=== PATIENT | male | born 1940 | race Caucasian/White ===

== ENCOUNTER 2017-03-14 10:22 | Outpatient (CLI) | payer MEDICARE ==
[2017-03-14 12:06] LABS: Anion Gap 15 mmol/L (10-20); BUN (Urea Nitrogen) 39 mg/dL (8.4-25.7); Calc. Creatinine Clearance 0 mL/min (70-130); Calcium 9.4 mg/dL (7.8-10.44); Carbon Dioxide 25 mmol/L (23-31); Cardiac Risk 3.4 (Less than 4.5); Chloride 109 mmol/L (98-107); Cholesterol 112 mg/dl (< 200 Desired); Estimated GFR-MDRD 31; Glucose 93 mg/dL (83-110); HDL Cholesterol 33 mg/dL (>60 Neg Risk); LDL Cholesterol, Calculated 54 mg/dL; Potassium 4.5 mmol/L (3.5-5.1); Sodium 144 mmol/L (136-145); Triglycerides 123 mg/dL (Less than 150)
== END 2017-03-14 10:23 | disposition home or self-care (01) ==
LOC: BURLAB 10:22
PROVIDERS: ATTEND Internal Medicine Cardiovascular Disease
DX: E78.5 Hyperlipidemia, unspecified (principal); N18.3 Chronic kidney disease, stage 3 (moderate)
CPT/HCPCS: 36415; 80048; 80061; 83835

== ENCOUNTER 2017-04-05 08:24 | Outpatient (CLI) | payer MEDICARE ==
[2017-04-05 09:38] LABS: Anion Gap 13 mmol/L (10-20); BUN (Urea Nitrogen) 39 mg/dL (8.4-25.7); Calc. Creatinine Clearance 0 mL/min (70-130); Calcium 9.7 mg/dL (7.8-10.44); Carbon Dioxide 29 mmol/L (23-31); Chloride 109 mmol/L (98-107); Estimated GFR-MDRD 34; Glucose 106 mg/dL (83-110); Potassium 4.7 mmol/L (3.5-5.1); Sodium 146 mmol/L (136-145)
== END 2017-04-05 08:25 | disposition home or self-care (01) ==
LOC: BURLAB 08:24
PROVIDERS: ATTEND Internal Medicine Nephrology
DX: N18.3 Chronic kidney disease, stage 3 (moderate) (principal)
CPT/HCPCS: 36415; 80048

== ENCOUNTER 2018-02-08 08:24 | Emergency (ER) | payer MEDICARE ==
[2018-02-08] MEDS ORDERED: methylPREDNISolone Sod Succ/PF 125 MG/2 ML VIAL ONE (08:41)
== END 2018-02-08 09:11 | disposition home or self-care (01) ==
LOC: BURERS 08:24
DX: M10.9 Gout, unspecified (principal); E78.5 Hyperlipidemia, unspecified; I10 Essential (primary) hypertension; Z87.891 Personal history of nicotine dependence
CPT/HCPCS: 96372; J2930

== ENCOUNTER 2018-03-04 14:22 | Outpatient (CLI) | payer MEDICARE ==
--- NOTE | 2018-03-04 15:04 | RAD ---
RIGHT RIBS FOUR VIEWS: History: Right rib injury. FINDINGS/IMPRESSION: Mildly displaced fracture involves the lateral aspect of the right 9th rib. No evidence of pneumothor ax. POS: [facility]
== END 2018-03-04 14:23 | disposition home or self-care (01) ==
LOC: BURRAD 14:22
PROVIDERS: ATTEND Family Medicine
DX: R07.81 Pleurodynia (principal); S22.31XA Fracture of one rib, right side, initial encounter for closed fracture

== ENCOUNTER 2018-03-27 15:32 | Inpatient (IN) | payer MEDICARE ==
[2018-03-28] MEDS: Amlodipine 10 MG TAB PO SCH (08:47)
[2018-03-28] MEDS: Carvedilol 3.125 MG TAB PO SCH ×2 (08:49→17:43)
[2018-03-28] MEDS: Colchicine 0.6 MG TAB PO SCH (08:50)
[2018-03-28] MEDS: Furosemide 20 MG TAB PO SCH (08:50)
[2018-03-28] MEDS: Aspirin 81 mg Enteric Coated Tablet PO SCH (08:50)
[2018-03-28] MEDS: Ezetimibe 10 MG TAB PO SCH (08:50)
[2018-03-28] MEDS: Fish Oil 1,000 MG CAP PO SCH (08:50)
[2018-03-28] MEDS: Gabapentin 300 MG CAP PO SCH ×2 (08:50→21:22)
[2018-03-28] MEDS: Vit A,C & E/Lutein/Minerals Tablet PO SCH ×2 (08:51→21:22)
[2018-03-28] MEDS ORDERED: VIT C PO SCH (09:00)
[2018-03-28] MEDS ORDERED: VIT E PO SCH (09:00)
[2018-03-28] MEDS ORDERED: OMEGA PO SCH (09:00)
[2018-03-28] MEDS ORDERED: LUTEIN PO SCH (09:00)
[2018-03-28] MEDS: Tamsulosin HCl 0.4 MG CAP PO SCH (21:22)
--- NOTE | 2018-03-29 08:33 | HP ---
PRIMARY CARE PHYSICIAN: Hernando Brown D.O. ATTENDING PHYSICIAN: Nora Lao M.D. CHIEF COMPLAINT: Extended stay at [facility] for skilled rehabilitation for deconditioning with physical and occupational therapy. HISTORY OF PRESENT ILLNESS: Mr. Marie is a 78-year-old male with hypertension, coronary artery disease, history of stroke, hyperlipidemia, and gout, was initially admitted to [facility] on 03/18/2018 for change of mental status and possible gout flare. On admission, he was treated for possible sepsis as the cause of his encephalopathy. He was given broad-spectrum IV antibiotics; however, cultures were all negative. His brain CT scan showed chronic small vessel ischemic changes and cerebral volume loss with focal areas of encephalomalacia in the occipital lobe, likely secondary to remote areas of infarctions. Also noted, remote lacunar infarction of the right basal ganglia with remote infarctions in each cerebellar hemisphere. He had intermittent confusion with somnolence while in the hospital; hence, Dr. Moulton was consulted and suggested to proceed with brain MRI; however, due to agitations and being combative, it was not carried out. He noted that likely cause of the confusion was due to a nonreversible etiology. Review of his records demonstrated that patient was admitted 3 weeks prior secondary to systemic inflammatory response syndrome with gout flare. According to his , he did not recover back to his baseline mental status after that discharge. Prior to that admission, patient was still driving to the grocery store and with no cognitive problems . Before his transfer, the patient's mental status improved some, but not back to his baseline. He refused physical therapy on 2 occasions and partially participated with therapy prior to his transfer; hence, this recommendation for inpatient rehab to address deconditioning. The patient' s family are hopeful for patient recovering, and to go back home. Upon arrival , the patient became agitated after learning that will be going home. During my exam, he was pleasant, but appears disoriented. PAST MEDICAL HISTORY: 1. Hypertension. 2. Coronary artery disease. 3. History of stroke. 4. Hyperlipidemia. 5. Diabetes, diet controlled. 6. Gout. 7. Recent diagnosis of acute kidney disease. 8. Macular degeneration. 9. Benign prostatic hypertrophy. 10. History of elevated liver function tests. PAST SURGICAL HISTORY: Coronary artery bypass. History of skin cancer excision. ALLERGIES: STATINS. FAMILY HISTORY: Significant for chronic kidney disease and macular degeneration. SOCIAL HISTORY: Patient is . Former smoker, quit about 20 years ago. History of alcohol use; used to drink 3 hard liquors every day for the past 50 years. Son lives 2 hours away MEDICATIONS: 1. Amlodipine 10 mg daily. 2. Aspirin 81 mg daily. 3. Coreg 3.125 mg b.i.d. 4. Colchicine 0.6 mg daily. 5. Zetia 10 mg daily. 6. Fish oil 1000 mg daily. 7. Lasix 20 mg daily. 8. Gabapentin 600 mg b.i.d. 9. Imdur 60 mg daily. 10. Multivitamins 1 tablet b.i.d. 11. Flomax 0.4 mg p.o. daily. REVIEW OF SYSTEMS: General: Negative for fever or chills. Negative for decreased appetite. HEENT: Negative for headaches. Positive for blurred vision. Negative for sore throat. Cardiovascular: Negative for chest pain. Negative for shortness of breath. Respiratory: Negative for wheezing. Negative for cough. Gastrointestinal: Negative for nausea, vomiting, or diarrhea. Neurologic: Positive for confusion. Positive for memory loss. Musculoskeletal: Positive for bilateral knee pain. Positive for weakness. Psychiatric: Negative for homicidal or suicidal ideation. PHYSICAL EXAMINATION: VITAL SIGNS: Blood pressure of 158/75, temperature of 98.7, pulse of 73, respiratory rate of 18, 02 sat 95% on room air. GENERAL: The patient is alert, oriented to himself, not in respiratory distress. HEENT: Normocephalic and atraumatic. Pupils equally reactive to light. NECK: Supple. Negative for lymphadenopathy. CHEST AND LUNGS: Symmetrical expansion. Clear to auscultation. HEART: Regular rate and rhythm. Negative for murmur, rubs, or gallops. ABDOMEN: Flat, soft, nontender, normoactive bowel sounds. Negative for CVA tenderness. EXTREMITIES: Symmetrical range of motion. Negative for tenderness. Negative for swelling. NEUROLOGIC: Patient is awake, cooperative, oriented to himself. He follows commands appropriately. Speech is fluent. Gait: Not assessed. LABORATORY DATA AND IMAGING: Reviewed. ASSESSMENT: 1. Physical deconditioning. 2. Ongoing altered mental sensorium. 3. Hypertension. 4. Diabetes mellitus, diet controlled. 5. Coronary artery disease. 6. Hyperlipidemia. 7. Gait instability. 8. History of strokes. 9. Recent gout flare. PLAN: 1. PT and OT to treat and evaluate. Goals to improve mobility, gait, endurance , strength, and transfer ability. 2. Reconcile present medication and adjust depending on clinical course. 3. Avoid benzodiazepines or any medication that can cause sedation. 4. Refer to case management for discharge planning and advise regarding potential needs for DME. 5. Anticipate discharge to home in 1-2 weeks and may require home health. CODE STATUS: FULL CODE. MTDD
[2018-03-29] MEDS ORDERED: Naproxen 500 MG TAB PO PRN (09:01)
[2018-03-29] MEDS: Amlodipine 10 MG TAB PO SCH (09:32)
[2018-03-29] MEDS: Carvedilol 3.125 MG TAB PO SCH ×2 (09:32→17:31)
[2018-03-29] MEDS: Furosemide 20 MG TAB PO SCH (09:33)
[2018-03-29] MEDS: Fish Oil 1,000 MG CAP PO SCH (09:33)
[2018-03-29] MEDS: Colchicine 0.6 MG TAB PO SCH (09:33)
[2018-03-29] MEDS: Aspirin 81 mg Enteric Coated Tablet PO SCH (09:33)
[2018-03-29] MEDS: Ezetimibe 10 MG TAB PO SCH (09:35)
[2018-03-29] MEDS: Gabapentin 300 MG CAP PO SCH ×3 (09:35→22:00)
[2018-03-29] MEDS: Vit A,C & E/Lutein/Minerals Tablet PO SCH ×2 (09:35→22:00)
[2018-03-29] MEDS: Acetaminophen 500 MG TAB PO PRN ×3 (10:00→22:17)
[2018-03-29] MEDS: Tamsulosin HCl 0.4 MG CAP PO SCH (22:00)
[2018-03-29] MEDS: Nystatin Cream 15 GM TUBE TOP SCH (22:06)
[2018-03-30] MEDS: Amlodipine 10 MG TAB PO SCH (08:24)
[2018-03-30] MEDS: Carvedilol 3.125 MG TAB PO SCH ×2 (08:24→18:07)
[2018-03-30] MEDS: Fish Oil 1,000 MG CAP PO SCH (08:25)
[2018-03-30] MEDS: Furosemide 20 MG TAB PO SCH (08:25)
[2018-03-30] MEDS: Aspirin 81 mg Enteric Coated Tablet PO SCH (08:25)
[2018-03-30] MEDS: Vit A,C & E/Lutein/Minerals Tablet PO SCH ×2 (08:25→20:26)
[2018-03-30] MEDS: Ezetimibe 10 MG TAB PO SCH (08:25)
[2018-03-30] MEDS: Colchicine 0.6 MG TAB PO SCH (08:25)
[2018-03-30] MEDS: Gabapentin 300 MG CAP PO SCH ×2 (08:25→20:27)
[2018-03-30] MEDS: Nystatin Cream 15 GM TUBE TOP SCH ×2 (08:26→20:27)
[2018-03-30] MEDS: Tamsulosin HCl 0.4 MG CAP PO SCH (20:25)
[2018-03-30] MEDS: Acetaminophen 500 MG TAB PO PRN (20:27)
[2018-03-31] MEDS: Colchicine 0.6 MG TAB PO SCH (08:12)
[2018-03-31] MEDS: Amlodipine 10 MG TAB PO SCH (08:12)
[2018-03-31] MEDS: Aspirin 81 mg Enteric Coated Tablet PO SCH (08:12)
[2018-03-31] MEDS: Ezetimibe 10 MG TAB PO SCH (08:12)
[2018-03-31] MEDS: Carvedilol 3.125 MG TAB PO SCH ×2 (08:12→17:10)
[2018-03-31] MEDS: Vit A,C & E/Lutein/Minerals Tablet PO SCH ×2 (08:13→21:05)
[2018-03-31] MEDS: Fish Oil 1,000 MG CAP PO SCH (08:13)
[2018-03-31] MEDS: Furosemide 20 MG TAB PO SCH (08:13)
[2018-03-31] MEDS: Nystatin Cream 15 GM TUBE TOP SCH ×2 (08:13→21:06)
[2018-03-31] MEDS: Gabapentin 300 MG CAP PO SCH ×2 (08:13→21:05)
[2018-03-31] MEDS: Acetaminophen 500 MG TAB PO PRN ×3 (08:48→23:09)
[2018-03-31] MEDS: Tamsulosin HCl 0.4 MG CAP PO SCH (21:05)
[2018-04-01] MEDS: Ezetimibe 10 MG TAB PO SCH (08:52)
[2018-04-01] MEDS: Amlodipine 10 MG TAB PO SCH (08:52)
[2018-04-01] MEDS: Fish Oil 1,000 MG CAP PO SCH (08:52)
[2018-04-01] MEDS: Furosemide 20 MG TAB PO SCH (08:52)
[2018-04-01] MEDS: Colchicine 0.6 MG TAB PO SCH (08:52)
[2018-04-01] MEDS: Gabapentin 300 MG CAP PO SCH ×2 (08:52→21:03)
[2018-04-01] MEDS: Aspirin 81 mg Enteric Coated Tablet PO SCH (08:52)
[2018-04-01] MEDS: Carvedilol 3.125 MG TAB PO SCH ×2 (08:53→17:22)
[2018-04-01] MEDS: Acetaminophen 500 MG TAB PO PRN (08:53)
[2018-04-01] MEDS: Vit A,C & E/Lutein/Minerals Tablet PO SCH ×2 (08:53→21:03)
[2018-04-01] MEDS: Nystatin Cream 15 GM TUBE TOP SCH ×2 (08:53→21:03)
[2018-04-01] MEDS ORDERED: traMADol HCl 50 MG TAB PO SCH (21:00)
[2018-04-01] MEDS: Tamsulosin HCl 0.4 MG CAP PO SCH (21:03)
[2018-04-01] MEDS: traMADol HCl 50 MG TAB PO SCH (21:45)
[2018-04-02] MEDS: Colchicine 0.6 MG TAB PO SCH (09:10)
[2018-04-02] MEDS: Carvedilol 3.125 MG TAB PO SCH ×2 (09:11→17:44)
[2018-04-02] MEDS: Gabapentin 300 MG CAP PO SCH ×2 (09:11→20:56)
[2018-04-02] MEDS: Amlodipine 10 MG TAB PO SCH (09:11)
[2018-04-02] MEDS: Ezetimibe 10 MG TAB PO SCH (09:11)
[2018-04-02] MEDS: Aspirin 81 mg Enteric Coated Tablet PO SCH (09:11)
[2018-04-02] MEDS: Furosemide 20 MG TAB PO SCH (09:11)
[2018-04-02] MEDS: Fish Oil 1,000 MG CAP PO SCH (09:11)
[2018-04-02] MEDS: traMADol HCl 50 MG TAB PO SCH (09:13)
[2018-04-02] MEDS: Acetaminophen 500 MG TAB PO PRN (09:13)
[2018-04-02] MEDS: Vit A,C & E/Lutein/Minerals Tablet PO SCH ×2 (09:13→20:56)
[2018-04-02] MEDS: Nystatin Cream 15 GM TUBE TOP SCH ×2 (09:14→20:57)
[2018-04-02] MEDS: Acetaminophen 325 MG TAB PO SCH ×2 (14:59→21:02)
[2018-04-02] MEDS: VOLTAREN FS SCH (17:44)
[2018-04-02] MEDS: Tamsulosin HCl 0.4 MG CAP PO SCH (20:56)
[2018-04-03] MEDS: VOLTAREN FS SCH ×4 (00:22→17:14)
[2018-04-03] MEDS: Acetaminophen 325 MG TAB PO SCH ×4 (06:03→21:27)
[2018-04-03] MEDS: Furosemide 20 MG TAB PO SCH (08:47)
[2018-04-03] MEDS: Ezetimibe 10 MG TAB PO SCH (08:48)
[2018-04-03] MEDS: Colchicine 0.6 MG TAB PO SCH (08:49)
[2018-04-03] MEDS: Fish Oil 1,000 MG CAP PO SCH (08:49)
[2018-04-03] MEDS: Aspirin 81 mg Enteric Coated Tablet PO SCH (08:49)
[2018-04-03] MEDS: Carvedilol 3.125 MG TAB PO SCH ×2 (08:50→17:11)
[2018-04-03] MEDS: Gabapentin 300 MG CAP PO SCH ×2 (08:50→21:25)
[2018-04-03] MEDS: Amlodipine 10 MG TAB PO SCH (08:59)
[2018-04-03] MEDS: Vit A,C & E/Lutein/Minerals Tablet PO SCH ×2 (09:31→21:25)
[2018-04-03] MEDS: Nystatin Cream 15 GM TUBE TOP SCH ×2 (09:33→21:27)
[2018-04-03] MEDS: Tamsulosin HCl 0.4 MG CAP PO SCH (21:25)
[2018-04-04] MEDS: VOLTAREN FS SCH ×5 (00:16→23:48)
[2018-04-04] MEDS: Acetaminophen 325 MG TAB PO SCH ×4 (02:52→20:20)
[2018-04-04] MEDS: Furosemide 20 MG TAB PO SCH (09:20)
[2018-04-04] MEDS: Aspirin 81 mg Enteric Coated Tablet PO SCH (09:20)
[2018-04-04] MEDS: Ezetimibe 10 MG TAB PO SCH (09:21)
[2018-04-04] MEDS: Carvedilol 3.125 MG TAB PO SCH ×2 (09:21→17:48)
[2018-04-04] MEDS: Gabapentin 300 MG CAP PO SCH ×2 (09:22→20:20)
[2018-04-04] MEDS: Fish Oil 1,000 MG CAP PO SCH (09:25)
[2018-04-04] MEDS: Amlodipine 10 MG TAB PO SCH (09:31)
[2018-04-04] MEDS: Nystatin Cream 15 GM TUBE TOP SCH ×2 (09:32→20:22)
[2018-04-04] MEDS: Vit A,C & E/Lutein/Minerals Tablet PO SCH ×2 (09:34→20:21)
[2018-04-04] MEDS: Colchicine 0.6 MG TAB PO SCH (09:35)
[2018-04-04] MEDS: Tamsulosin HCl 0.4 MG CAP PO SCH (20:20)
[2018-04-05] MEDS: Acetaminophen 325 MG TAB PO SCH ×4 (02:42→21:13)
[2018-04-05] MEDS: VOLTAREN FS SCH ×2 (05:28→12:07)
[2018-04-05] MEDS: Vit A,C & E/Lutein/Minerals Tablet PO SCH ×2 (08:59→21:14)
[2018-04-05] MEDS: Aspirin 81 mg Enteric Coated Tablet PO SCH (09:00)
[2018-04-05] MEDS: Gabapentin 300 MG CAP PO SCH ×2 (09:00→21:14)
[2018-04-05] MEDS: Ezetimibe 10 MG TAB PO SCH (09:00)
[2018-04-05] MEDS: Fish Oil 1,000 MG CAP PO SCH (09:01)
[2018-04-05] MEDS: Carvedilol 3.125 MG TAB PO SCH ×2 (09:01→16:38)
[2018-04-05] MEDS: Nystatin Cream 15 GM TUBE TOP SCH ×2 (09:02→21:14)
[2018-04-05] MEDS: Furosemide 20 MG TAB PO SCH (09:02)
[2018-04-05] MEDS: Amlodipine 10 MG TAB PO SCH (09:02)
[2018-04-05] MEDS: Colchicine 0.6 MG TAB PO SCH (09:03)
--- NOTE | 2018-04-05 17:13 | PRG ---
DATE OF SERVICE: 04/05/2018 DATE OF ADMISSION: 03/27/2018 PRIMARY CARE PHYSICIAN: Dr. Hernando Brown ATTENDING: Nora Lao M.D. SUBJECTIVE: He had a low blood pressure after tramadol last Sunday. His vital signs remained stabl e after stopping the tramadol. He denies any complaints. His mental status is improving. He is com plaining of constant pain on left knee limiting him to participate with physical therapy. Today, he walked about 316 feet, not requiring any rest breaks, using his rolling walker with standby assist. Patient is getting better with management of lower body strength, but still need a minimal assist to moderate assist due to inconsistency of performance. According to physical therapy notes, he has gonzalez ited motivation at times and will verbalize wanting to go home and not willing to push himself. PHYSICAL EXAMINATION: VITAL SIGNS: Blood pressure 134/68, temperature of 98.2, pulse of 71, respiratory rate of 18, 02 sat 93% on room air. GENERAL: The patient is alert, oriented, not in respiratory distress. HEENT: Normocephalic, atraumatic. Pupils are reactive to light. NECK: Supple. Negative for lymphadenopathy. CHEST AND LUNGS: Symmetrical expansion. Clear to auscultation. HEART: Regular rate and rhythm. Negative for murmur, rubs or gallops. ABDOMEN: Flat, soft, nontender. EXTREMITIES: Symmetrical range of motion. Positive for left anterior knee tenderness, decreased ran ge of motion. Right knee essentially normal. NEUROLOGIC: Patient is cooperative, oriented to himself and place. He follows commands appropriatel y. ASSESSMENT: 1. Physical deconditioning. 2. Altered mental status, improving. 3. Hypertension. 4. Diabetes mellitus, diet controlled. 5. Coronary artery disease. 6. Hyperlipidemia. 7. Gait instability. 8. History of strokes. 9. Recent gout flare. PLAN: Continue physical and occupational therapy. We will order a knee brace for support. Likely d ischarge to home next week with home health for physical therapy.
[2018-04-05] MEDS: DICLOFENAC 1% TOPICAL GEL TOP SCH (17:30)
[2018-04-05] MEDS: Tamsulosin HCl 0.4 MG CAP PO SCH (21:13)
[2018-04-06] MEDS: DICLOFENAC 1% TOPICAL GEL TOP SCH ×4 (00:15→17:31)
[2018-04-06] MEDS: Acetaminophen 325 MG TAB PO SCH ×4 (03:00→20:32)
[2018-04-06] MEDS: Ezetimibe 10 MG TAB PO SCH (09:45)
[2018-04-06] MEDS: Gabapentin 300 MG CAP PO SCH ×2 (09:46→20:32)
[2018-04-06] MEDS: Furosemide 20 MG TAB PO SCH (09:46)
[2018-04-06] MEDS: Amlodipine 10 MG TAB PO SCH (09:46)
[2018-04-06] MEDS: Aspirin 81 mg Enteric Coated Tablet PO SCH (09:46)
[2018-04-06] MEDS: Vit A,C & E/Lutein/Minerals Tablet PO SCH ×2 (09:47→20:32)
[2018-04-06] MEDS: Carvedilol 3.125 MG TAB PO SCH ×2 (09:47→17:30)
[2018-04-06] MEDS: Nystatin Cream 15 GM TUBE TOP SCH ×2 (09:47→20:32)
[2018-04-06] MEDS: Colchicine 0.6 MG TAB PO SCH (09:47)
[2018-04-06] MEDS: Fish Oil 1,000 MG CAP PO SCH (09:47)
[2018-04-06] MEDS: Tamsulosin HCl 0.4 MG CAP PO SCH (20:32)
[2018-04-07] MEDS: DICLOFENAC 1% TOPICAL GEL TOP SCH ×4 (00:10→21:09)
[2018-04-07] MEDS: Acetaminophen 325 MG TAB PO SCH ×4 (02:03→17:27)
[2018-04-07] MEDS: Gabapentin 300 MG CAP PO SCH ×2 (09:49→21:04)
[2018-04-07] MEDS: Carvedilol 3.125 MG TAB PO SCH ×2 (09:49→17:27)
[2018-04-07] MEDS: Aspirin 81 mg Enteric Coated Tablet PO SCH (09:49)
[2018-04-07] MEDS: Amlodipine 10 MG TAB PO SCH (09:50)
[2018-04-07] MEDS: Ezetimibe 10 MG TAB PO SCH (09:51)
[2018-04-07] MEDS: Furosemide 20 MG TAB PO SCH (09:51)
[2018-04-07] MEDS: Fish Oil 1,000 MG CAP PO SCH (09:51)
[2018-04-07] MEDS: Colchicine 0.6 MG TAB PO SCH (09:52)
[2018-04-07] MEDS: Vit A,C & E/Lutein/Minerals Tablet PO SCH ×2 (09:52→21:07)
[2018-04-07] MEDS: Nystatin Cream 15 GM TUBE TOP SCH ×2 (09:52→21:05)
[2018-04-07] MEDS: Tamsulosin HCl 0.4 MG CAP PO SCH (21:05)
[2018-04-08] MEDS: DICLOFENAC 1% TOPICAL GEL TOP SCH ×4 (00:01→17:55)
[2018-04-08] MEDS: Acetaminophen 325 MG TAB PO SCH ×4 (00:01→17:55)
[2018-04-08] MEDS: Amlodipine 10 MG TAB PO SCH (08:36)
[2018-04-08] MEDS: Aspirin 81 mg Enteric Coated Tablet PO SCH (08:36)
[2018-04-08] MEDS: Gabapentin 300 MG CAP PO SCH ×2 (08:37→20:36)
[2018-04-08] MEDS: Furosemide 20 MG TAB PO SCH (08:37)
[2018-04-08] MEDS: Ezetimibe 10 MG TAB PO SCH (08:38)
[2018-04-08] MEDS: Fish Oil 1,000 MG CAP PO SCH (08:38)
[2018-04-08] MEDS: Carvedilol 3.125 MG TAB PO SCH ×2 (08:38→17:55)
[2018-04-08] MEDS: Vit A,C & E/Lutein/Minerals Tablet PO SCH ×2 (08:39→20:36)
[2018-04-08] MEDS: Nystatin Cream 15 GM TUBE TOP SCH ×2 (08:40→20:36)
[2018-04-08] MEDS: Colchicine 0.6 MG TAB PO SCH (08:42)
[2018-04-08] MEDS ORDERED: Docusate 100 MG CAP PO PRN (11:27)
[2018-04-08] MEDS: Tamsulosin HCl 0.4 MG CAP PO SCH (20:36)
[2018-04-09] MEDS: DICLOFENAC 1% TOPICAL GEL TOP SCH ×2 (00:01→05:44)
[2018-04-09] MEDS: Acetaminophen 325 MG TAB PO SCH ×2 (05:44)
[2018-04-09 06:35] VITALS: BP 135/73
[2018-04-09] MEDS: Vit A,C & E/Lutein/Minerals Tablet PO SCH (07:58)
[2018-04-09] MEDS: Ezetimibe 10 MG TAB PO SCH (07:59)
[2018-04-09] MEDS: Gabapentin 300 MG CAP PO SCH (07:59)
[2018-04-09] MEDS: Fish Oil 1,000 MG CAP PO SCH (08:00)
[2018-04-09] MEDS: Aspirin 81 mg Enteric Coated Tablet PO SCH (08:00)
[2018-04-09] MEDS: Amlodipine 10 MG TAB PO SCH (08:00)
[2018-04-09] MEDS: Furosemide 20 MG TAB PO SCH (08:01)
[2018-04-09] MEDS: Colchicine 0.6 MG TAB PO SCH (08:02)
[2018-04-09] MEDS: Carvedilol 3.125 MG TAB PO SCH (08:02)
[2018-04-09 08:53] VITALS: TEMP 97.7
[2018-04-09 11:05] VITALS: BMI 23.4
== END 2018-04-09 11:38 | disposition home or self-care (01) | DRG 948 ==
LOC: BURMED 17:25
PROVIDERS: ADMIT Family Medicine; ATTEND Family Medicine
DX: R53.1 Weakness (principal); I10 Essential (primary) hypertension; I25.10 Atherosclerotic heart disease of native coronary artery without angina pectoris; Z86.73 Personal history of transient ischemic attack (TIA), and cerebral infarction without residual deficits; E78.5 Hyperlipidemia, unspecified; M10.9 Gout, unspecified; E11.9 Type 2 diabetes mellitus without complications; Z95.1 Presence of aortocoronary bypass graft; Z85.828 Personal history of other malignant neoplasm of skin; Z87.891 Personal history of nicotine dependence; R26.89 Other abnormalities of gait and mobility
CPT/HCPCS: G8978-GP-CM; G8979-GP-CJ; G8987-GO-CL; G8988-GO-CI; G9165-GN-CK; G9166-GN-CI

== ENCOUNTER 2018-08-19 16:13 | Inpatient (IN) | payer MEDICARE ==
[2018-08-19] MEDS ORDERED: Senokot S 8.6-50 MG TAB PO PRN (20:06)
[2018-08-19] MEDS ORDERED: Ondansetron ODT 4 MG TAB SL PRN (20:06)
[2018-08-19] MEDS: Colchicine 0.6 MG TAB PO SCH (21:31)
[2018-08-19] MEDS: Gabapentin 300 MG CAP PO SCH (21:31)
[2018-08-19] MEDS: Tamsulosin HCl 0.4 MG CAP PO SCH (21:31)
[2018-08-19] MEDS: Vit A,C & E/Lutein/Minerals Tablet PO SCH (21:32)
[2018-08-19] MEDS: Zolpidem Tartrate 5 MG TAB PO SCH (21:32)
[2018-08-19] MEDS: Heparin 5,000 UNITS/ML VIAL SC SCH (21:32)
[2018-08-20] MEDS: Gabapentin 300 MG CAP PO SCH ×2 (09:03→21:04)
[2018-08-20] MEDS: Vit A,C & E/Lutein/Minerals Tablet PO SCH ×2 (09:04→21:04)
[2018-08-20] MEDS: Carvedilol 3.125 MG TAB PO SCH ×2 (09:04→16:55)
[2018-08-20] MEDS: Ezetimibe 10 MG TAB PO SCH (09:04)
[2018-08-20] MEDS: Colchicine 0.6 MG TAB PO SCH ×2 (09:04→21:05)
[2018-08-20] MEDS: Baclofen 10 MG TAB PO SCH (09:05)
[2018-08-20] MEDS: Amlodipine 10 MG TAB PO SCH (09:05)
[2018-08-20] MEDS: Fish Oil 1,000 MG CAP PO SCH (09:05)
[2018-08-20] MEDS: Aspirin 81 mg Enteric Coated Tablet PO SCH (09:05)
[2018-08-20] MEDS: traMADol HCl 50 MG TAB PO PRN ×2 (09:06→18:14)
[2018-08-20] MEDS: Furosemide 20 MG TAB PO SCH (09:06)
[2018-08-20] MEDS: Heparin 5,000 UNITS/ML VIAL SC SCH ×3 (09:17→21:04)
[2018-08-20] MEDS: BIOTIN PO SCH (09:20)
[2018-08-20] MEDS ORDERED: Loperamide HCl 2 MG CAP PO PRN (11:32)
[2018-08-20] MEDS: FEBUXOSTAT 40 MG PO SCH (13:54)
[2018-08-20] MEDS: Tamsulosin HCl 0.4 MG CAP PO SCH (21:04)
[2018-08-20] MEDS: Zolpidem Tartrate 5 MG TAB PO SCH (21:04)
[2018-08-21 05:49] LABS: #Basophils 0.1 thou/uL (0.0-0.2); #Eosinphils 0.4 thou/uL (0.0-0.7); #Lymphocytes 2.1 thou/uL (1.20-3.40); #Monocytes 1.4 thou/uL (0.11-0.59); #Neutrophils 8.2 thou/uL (1.40-6.50); %Basophils 0.9 % (0.0-1.0); %Eosinophils 3.5 % (0.0-10.0); %Lymphocytes 17.2 % (21.0-51.0); %Monocytes 11.8 % (0.0-10.0); %Neutrophils 66.7 % (42.0-75.0); Hemoglobin 12.9 g/dL (14.0-18.0); Mean Corpuscular Hemoglobin 28.8 pg (27.0-31.0); Mean Corpuscular Volume 79.9 fL (78.0-98.0); Platelet Count 409 thou/uL (130-400); RBC Distribution Width 11.7 % (11.5-14.5); Red Blood Cell (RBC) Count 4.48 mill/uL (4.70-6.10); White Blood Cell (WBC) Count 12.2 thou/uL (4.8-10.8)
[2018-08-21 05:52] LABS: ALT (SGPT) 71 U/L (8-55); AST (SGOT) 45 U/L (5-34); Alkaline Phosphatase 180 U/L (40-150); Anion Gap 13 mmol/L (10-20); BUN (Urea Nitrogen) 22 mg/dL (8.4-25.7); Bilirubin, Total 0.5 mg/dL (0.2-1.2); Calc. Creatinine Clearance 0 mL/min (70-130); Calcium 9.3 mg/dL (7.8-10.44); Carbon Dioxide 25 mmol/L (23-31); Chloride 104 mmol/L (98-107); Estimated GFR-MDRD 51; Globulin 3.2 g/dL (2.4-3.5); Glucose 101 mg/dL (83-110); Potassium 3.4 mmol/L (3.5-5.1); Protein, Total 6.2 g/dL (5.8-8.1); Sodium 139 mmol/L (136-145)
[2018-08-21] MEDS ORDERED: Potassium Chloride 20 MEQ TAB PO SCH (07:15)
[2018-08-21] MEDS: Colchicine 0.6 MG TAB PO SCH ×2 (08:33→21:25)
[2018-08-21] MEDS: Fish Oil 1,000 MG CAP PO SCH (08:33)
[2018-08-21] MEDS: Furosemide 20 MG TAB PO SCH (08:33)
[2018-08-21] MEDS: Saccharomyces boulardii 250 MG CAP PO SCH (08:33)
[2018-08-21] MEDS: Amlodipine 10 MG TAB PO SCH (08:33)
[2018-08-21] MEDS: traMADol HCl 50 MG TAB PO PRN ×2 (08:35→15:35)
[2018-08-21] MEDS: Ezetimibe 10 MG TAB PO SCH (08:36)
[2018-08-21] MEDS: Heparin 5,000 UNITS/ML VIAL SC SCH ×3 (08:36→21:24)
[2018-08-21] MEDS: Carvedilol 3.125 MG TAB PO SCH ×2 (08:36→16:58)
[2018-08-21] MEDS: Vit A,C & E/Lutein/Minerals Tablet PO SCH ×2 (08:36→21:25)
[2018-08-21] MEDS: Aspirin 81 mg Enteric Coated Tablet PO SCH (08:36)
[2018-08-21] MEDS: Gabapentin 300 MG CAP PO SCH ×2 (08:36→21:25)
[2018-08-21] MEDS: BIOTIN PO SCH (08:41)
[2018-08-21] MEDS: FEBUXOSTAT 40 MG PO SCH ×2 (08:41→09:47)
[2018-08-21] MEDS: Baclofen 10 MG TAB PO SCH (09:47)
[2018-08-21] MEDS: Zolpidem Tartrate 5 MG TAB PO SCH (21:25)
[2018-08-21] MEDS: Tamsulosin HCl 0.4 MG CAP PO SCH (21:25)
[2018-08-22] MEDS: Gabapentin 300 MG CAP PO SCH ×2 (08:59→20:37)
[2018-08-22] MEDS: Baclofen 10 MG TAB PO SCH (09:00)
[2018-08-22] MEDS: Furosemide 20 MG TAB PO SCH (09:02)
[2018-08-22] MEDS: Carvedilol 3.125 MG TAB PO SCH ×2 (09:02→17:25)
[2018-08-22] MEDS: Fish Oil 1,000 MG CAP PO SCH (09:02)
[2018-08-22] MEDS: Aspirin 81 mg Enteric Coated Tablet PO SCH (09:03)
[2018-08-22] MEDS: Amlodipine 10 MG TAB PO SCH (09:03)
[2018-08-22] MEDS: Ezetimibe 10 MG TAB PO SCH (09:03)
[2018-08-22] MEDS: Vit A,C & E/Lutein/Minerals Tablet PO SCH ×2 (09:03→20:38)
[2018-08-22] MEDS: Heparin 5,000 UNITS/ML VIAL SC SCH ×3 (09:05→20:38)
[2018-08-22] MEDS: Colchicine 0.6 MG TAB PO SCH ×2 (09:12→20:38)
[2018-08-22] MEDS: FEBUXOSTAT 40 MG PO SCH (09:13)
[2018-08-22] MEDS: BIOTIN PO SCH (09:13)
[2018-08-22] MEDS: Saccharomyces boulardii 250 MG CAP PO SCH (09:17)
[2018-08-22] MEDS: traMADol HCl 50 MG TAB PO PRN (12:50)
[2018-08-22] MEDS: Nystatin Powder 15 GM BOT TOP SCH (17:26)
[2018-08-22] MEDS: Tamsulosin HCl 0.4 MG CAP PO SCH (20:38)
[2018-08-22] MEDS: Zolpidem Tartrate 5 MG TAB PO SCH (20:38)
[2018-08-23] MEDS: Nystatin Powder 15 GM BOT TOP SCH ×5 (00:01→21:21)
[2018-08-23] MEDS: Acetaminophen 325 MG TAB PO PRN (05:24)
[2018-08-23] MEDS: Vit A,C & E/Lutein/Minerals Tablet PO SCH ×2 (08:02→21:20)
[2018-08-23] MEDS: Fish Oil 1,000 MG CAP PO SCH (08:02)
[2018-08-23] MEDS: Colchicine 0.6 MG TAB PO SCH ×2 (08:02→21:19)
[2018-08-23] MEDS: Furosemide 20 MG TAB PO SCH (08:03)
[2018-08-23] MEDS: Gabapentin 300 MG CAP PO SCH ×2 (08:04→21:20)
[2018-08-23] MEDS: Baclofen 10 MG TAB PO SCH (08:04)
[2018-08-23] MEDS: Ezetimibe 10 MG TAB PO SCH (08:05)
[2018-08-23] MEDS: Saccharomyces boulardii 250 MG CAP PO SCH (08:05)
[2018-08-23] MEDS: Aspirin 81 mg Enteric Coated Tablet PO SCH (08:05)
[2018-08-23] MEDS: FEBUXOSTAT 40 MG PO SCH (08:06)
[2018-08-23] MEDS: Amlodipine 10 MG TAB PO SCH (08:07)
[2018-08-23] MEDS: Heparin 5,000 UNITS/ML VIAL SC SCH ×3 (08:19→21:20)
[2018-08-23] MEDS: Carvedilol 3.125 MG TAB PO SCH ×2 (08:26→17:15)
[2018-08-23] MEDS: BIOTIN PO SCH (08:28)
[2018-08-23] MEDS: traMADol HCl 50 MG TAB PO PRN ×2 (15:09→21:25)
[2018-08-23] MEDS: Zolpidem Tartrate 5 MG TAB PO SCH (21:19)
[2018-08-23] MEDS: Tamsulosin HCl 0.4 MG CAP PO SCH (21:19)
[2018-08-24] MEDS: Fish Oil 1,000 MG CAP PO SCH (09:48)
[2018-08-24] MEDS: Gabapentin 300 MG CAP PO SCH ×2 (09:48→20:30)
[2018-08-24] MEDS: Colchicine 0.6 MG TAB PO SCH ×2 (09:48→20:30)
[2018-08-24] MEDS: Amlodipine 10 MG TAB PO SCH (09:49)
[2018-08-24] MEDS: Baclofen 10 MG TAB PO SCH (09:49)
[2018-08-24] MEDS: Carvedilol 3.125 MG TAB PO SCH ×2 (09:49→16:56)
[2018-08-24] MEDS: Ezetimibe 10 MG TAB PO SCH (09:49)
[2018-08-24] MEDS: Furosemide 20 MG TAB PO SCH (09:49)
[2018-08-24] MEDS: Aspirin 81 mg Enteric Coated Tablet PO SCH (09:49)
[2018-08-24] MEDS: Saccharomyces boulardii 250 MG CAP PO SCH (09:53)
[2018-08-24] MEDS: Vit A,C & E/Lutein/Minerals Tablet PO SCH ×2 (09:53→20:30)
[2018-08-24] MEDS: BIOTIN PO SCH (09:53)
[2018-08-24] MEDS: SYSTANE EYE EA EYE PRN ×2 (09:54→16:57)
[2018-08-24] MEDS: FEBUXOSTAT 40 MG PO SCH (09:54)
[2018-08-24] MEDS: Nystatin Powder 15 GM BOT TOP SCH ×4 (09:55→20:29)
[2018-08-24] MEDS: Heparin 5,000 UNITS/ML VIAL SC SCH ×3 (10:00→20:30)
[2018-08-24] MEDS: traMADol HCl 50 MG TAB PO PRN (10:37)
[2018-08-24] MEDS: Acetaminophen 325 MG TAB PO PRN (10:39)
[2018-08-24] MEDS ORDERED: Meclizine HCl 25 MG TAB PO PRN (11:19)
[2018-08-24] MEDS: Zolpidem Tartrate 5 MG TAB PO SCH (20:30)
[2018-08-24] MEDS: Tamsulosin HCl 0.4 MG CAP PO SCH (20:30)
[2018-08-25] MEDS: Baclofen 10 MG TAB PO SCH (10:03)
[2018-08-25] MEDS: Gabapentin 300 MG CAP PO SCH ×2 (10:03→20:52)
[2018-08-25] MEDS: Aspirin 81 mg Enteric Coated Tablet PO SCH (10:03)
[2018-08-25] MEDS: Carvedilol 3.125 MG TAB PO SCH ×2 (10:03→17:39)
[2018-08-25] MEDS: Colchicine 0.6 MG TAB PO SCH ×2 (10:03→20:53)
[2018-08-25] MEDS: Fish Oil 1,000 MG CAP PO SCH (10:03)
[2018-08-25] MEDS: Saccharomyces boulardii 250 MG CAP PO SCH (10:04)
[2018-08-25] MEDS: Furosemide 20 MG TAB PO SCH (10:04)
[2018-08-25] MEDS: Ezetimibe 10 MG TAB PO SCH (10:04)
[2018-08-25] MEDS: FEBUXOSTAT 40 MG PO SCH (10:05)
[2018-08-25] MEDS: Amlodipine 10 MG TAB PO SCH (10:05)
[2018-08-25] MEDS: Vit A,C & E/Lutein/Minerals Tablet PO SCH ×2 (10:05→20:52)
[2018-08-25] MEDS: Nystatin Powder 15 GM BOT TOP SCH ×4 (10:05→22:05)
[2018-08-25] MEDS: BIOTIN PO SCH (10:05)
[2018-08-25] MEDS: Heparin 5,000 UNITS/ML VIAL SC SCH ×3 (10:13→20:53)
[2018-08-25] MEDS: SYSTANE EYE EA EYE PRN ×2 (13:51→22:04)
[2018-08-25] MEDS: traMADol HCl 50 MG TAB PO PRN (15:22)
[2018-08-25] MEDS: Acetaminophen 325 MG TAB PO PRN (15:22)
[2018-08-25] MEDS: Tamsulosin HCl 0.4 MG CAP PO SCH (20:52)
[2018-08-25] MEDS: Zolpidem Tartrate 5 MG TAB PO SCH (20:53)
[2018-08-26 04:57] LABS: ALT (SGPT) 47 U/L (8-55); AST (SGOT) 35 U/L (5-34); Albumin 3.1 g/dL (3.4-4.8); Alkaline Phosphatase 129 U/L (40-150); Anion Gap 15 mmol/L (10-20); BUN (Urea Nitrogen) 28 mg/dL (8.4-25.7); Bilirubin, Total 0.3 mg/dL (0.2-1.2); Calc. Creatinine Clearance 37 mL/min (70-130); Calcium 9.2 mg/dL (7.8-10.44); Carbon Dioxide 24 mmol/L (23-31); Chloride 105 mmol/L (98-107); Estimated GFR-MDRD 37; Globulin 3.2 g/dL (2.4-3.5); Glucose 92 mg/dL (83-110); Potassium 3.5 mmol/L (3.5-5.1); Protein, Total 6.3 g/dL (5.8-8.1); Sodium 140 mmol/L (136-145)
[2018-08-26 05:08] LABS: #Basophils 0.1 thou/uL (0.0-0.2); #Eosinphils 0.2 thou/uL (0.0-0.7); #Lymphocytes 2.8 thou/uL (1.20-3.40); #Monocytes 1.1 thou/uL (0.11-0.59); #Neutrophils 4.4 thou/uL (1.40-6.50); %Basophils 0.8 % (0.0-1.0); %Eosinophils 2.5 % (0.0-10.0); %Lymphocytes 33.3 % (21.0-51.0); %Monocytes 12.3 % (0.0-10.0); Hemoglobin 11.6 g/dL (14.0-18.0); Mean Corpuscular HGB CONC 33.7 g/dL (32.0-36.0); Mean Corpuscular Hemoglobin 29.2 pg (27.0-31.0); Mean Corpuscular Volume 86.7 fL (78.0-98.0); Platelet Count 395 thou/uL (130-400); RBC Distribution Width 12.6 % (11.5-14.5); Red Blood Cell (RBC) Count 3.99 mill/uL (4.70-6.10); White Blood Cell (WBC) Count 8.5 thou/uL (4.8-10.8)
[2018-08-26] MEDS: traMADol HCl 50 MG TAB PO PRN (08:51)
[2018-08-26] MEDS: Aspirin 81 mg Enteric Coated Tablet PO SCH (08:53)
[2018-08-26] MEDS: Fish Oil 1,000 MG CAP PO SCH (08:53)
[2018-08-26] MEDS: Colchicine 0.6 MG TAB PO SCH ×2 (08:53→21:01)
[2018-08-26] MEDS: Carvedilol 3.125 MG TAB PO SCH ×2 (08:54→16:49)
[2018-08-26] MEDS: Gabapentin 300 MG CAP PO SCH ×2 (08:54→21:01)
[2018-08-26] MEDS: Baclofen 10 MG TAB PO SCH (08:54)
[2018-08-26] MEDS: Saccharomyces boulardii 250 MG CAP PO SCH (08:55)
[2018-08-26] MEDS: Vit A,C & E/Lutein/Minerals Tablet PO SCH ×2 (08:55→21:02)
[2018-08-26] MEDS: FEBUXOSTAT 40 MG PO SCH (08:55)
[2018-08-26] MEDS: Furosemide 20 MG TAB PO SCH (08:55)
[2018-08-26] MEDS: Ezetimibe 10 MG TAB PO SCH (08:55)
[2018-08-26] MEDS: BIOTIN PO SCH (08:56)
[2018-08-26] MEDS: Heparin 5,000 UNITS/ML VIAL SC SCH ×3 (08:56→21:02)
[2018-08-26] MEDS: Nystatin Powder 15 GM BOT TOP SCH ×3 (08:56→16:50)
[2018-08-26] MEDS: Amlodipine 10 MG TAB PO SCH (09:01)
[2018-08-26 15:36] VITALS: BMI 24.1
[2018-08-26] MEDS: Tamsulosin HCl 0.4 MG CAP PO SCH (21:01)
[2018-08-26] MEDS: Zolpidem Tartrate 5 MG TAB PO SCH (21:02)
[2018-08-27] MEDS: Nystatin Powder 15 GM BOT TOP SCH ×6 (06:57→20:39)
[2018-08-27] MEDS: Aspirin 81 mg Enteric Coated Tablet PO SCH (09:42)
[2018-08-27] MEDS: Furosemide 20 MG TAB PO SCH (09:42)
[2018-08-27] MEDS: Fish Oil 1,000 MG CAP PO SCH (09:42)
[2018-08-27] MEDS: traMADol HCl 50 MG TAB PO PRN ×2 (09:42→16:36)
[2018-08-27] MEDS: Gabapentin 300 MG CAP PO SCH ×2 (09:42→20:39)
[2018-08-27] MEDS: Carvedilol 3.125 MG TAB PO SCH ×2 (09:42→16:36)
[2018-08-27] MEDS: Baclofen 10 MG TAB PO SCH (09:42)
[2018-08-27] MEDS: Amlodipine 10 MG TAB PO SCH (09:43)
[2018-08-27] MEDS: Vit A,C & E/Lutein/Minerals Tablet PO SCH ×2 (09:43→20:39)
[2018-08-27] MEDS: Saccharomyces boulardii 250 MG CAP PO SCH (09:43)
[2018-08-27] MEDS: Colchicine 0.6 MG TAB PO SCH ×2 (09:44→20:39)
[2018-08-27] MEDS: Ezetimibe 10 MG TAB PO SCH (09:44)
[2018-08-27] MEDS: SYSTANE EYE EA EYE PRN (09:44)
[2018-08-27] MEDS: FEBUXOSTAT 40 MG PO SCH (09:47)
[2018-08-27] MEDS: Heparin 5,000 UNITS/ML VIAL SC SCH ×3 (09:48→20:39)
[2018-08-27] MEDS: Tamsulosin HCl 0.4 MG CAP PO SCH (20:39)
[2018-08-27] MEDS: Zolpidem Tartrate 5 MG TAB PO SCH (20:39)
[2018-08-28 06:29] VITALS: BP 172/77; TEMP 97.7
[2018-08-28] MEDS: Saccharomyces boulardii 250 MG CAP PO SCH (08:53)
[2018-08-28] MEDS: traMADol HCl 50 MG TAB PO PRN (08:53)
[2018-08-28] MEDS: Gabapentin 300 MG CAP PO SCH (08:54)
[2018-08-28] MEDS: Ezetimibe 10 MG TAB PO SCH (08:54)
[2018-08-28] MEDS: Vit A,C & E/Lutein/Minerals Tablet PO SCH (08:54)
[2018-08-28] MEDS: Colchicine 0.6 MG TAB PO SCH (08:54)
[2018-08-28] MEDS: Baclofen 10 MG TAB PO SCH (08:54)
[2018-08-28] MEDS: Amlodipine 10 MG TAB PO SCH (08:55)
[2018-08-28] MEDS: Aspirin 81 mg Enteric Coated Tablet PO SCH (08:56)
[2018-08-28] MEDS: Carvedilol 3.125 MG TAB PO SCH (08:56)
[2018-08-28] MEDS: Fish Oil 1,000 MG CAP PO SCH (08:56)
[2018-08-28] MEDS: Furosemide 20 MG TAB PO SCH (08:56)
[2018-08-28] MEDS: Heparin 5,000 UNITS/ML VIAL SC SCH ×2 (08:59→15:36)
[2018-08-28] MEDS ORDERED: ALIROCUMAB 75 MG SC SCH (09:00)
[2018-08-28] MEDS: Nystatin Powder 15 GM BOT TOP SCH ×2 (09:04→14:17)
[2018-08-28] MEDS: FEBUXOSTAT 40 MG PO SCH (09:09)
[2018-08-28] MEDS: SYSTANE EYE EA EYE PRN (09:11)
--- NOTE | 2018-08-29 07:42 | DIS ---
DATE OF ADMISSION: 08/19/2018 DATE OF DISCHARGE: 08/28/2018 ADMITTING DIAGNOSES: Physical deconditioning, gouty arthritis, diarrhea, hypertension, dyslipidemia, type 2 diabetes mellitus, and benign prostatic hyperplasia. HOSPITAL COURSE: 78-year-old male was transitioned to our facility to participate with physical therapy and occupational therapy secondary to his physical deconditioning and impaired gait. He was initially admitted at [facility] in [place] with acute worsening pain to the right elbow with concern that this could be septic arthritis. Subsequent workup revealed this to be a gouty arthritic flare. The patient has had this previously, which does coincide with leukocytosis. His CBC was trended and his leukocytosis completely resolved. He was able to participate with physical therapy and occupational therapy in order to reach the goal set forth for him to be able to discharge back to his home setting. He will resume further PT and OT as an outpatient at . He reports to be feeling well at this time and is amenable to discharge back to his home setting. DISCHARGE MEDICATIONS: The patient has had no new medications added and will resume his usual home medications. DISPOSITION: He will be discharged to his home setting where he lives with his . He may follow up with his primary care physician, Dr. Brown in approximately 1 week and will plan for further PT and OT at as an outpatient. Job ID: [id number]
== END 2018-08-28 16:50 | disposition home or self-care (01) | DRG 948 ==
LOC: BURMED 17:30
PROVIDERS: ADMIT Family Medicine; ATTEND Family Medicine
DX: R53.81 Other malaise (principal); M10.9 Gout, unspecified; R19.7 Diarrhea, unspecified; R26.89 Other abnormalities of gait and mobility; I10 Essential (primary) hypertension; E78.5 Hyperlipidemia, unspecified; E11.9 Type 2 diabetes mellitus without complications; N40.0 Benign prostatic hyperplasia without lower urinary tract symptoms
CPT/HCPCS: 36415; 80053; 85025; 90471; 90662; G0008; G8978-GP-CM; G8979-GP-CI; J1644

== ENCOUNTER 2018-09-03 16:15 | Observation (INO) | payer MEDICARE ==
[2018-09-03 17:34] LABS: #Lymphocytes 0.8 thou/uL (1.20-3.40); #Monocytes 0.9 thou/uL (0.11-0.59); %Basophils 0.3 % (0.0-1.0); %Eosinophils 0.1 % (0.0-10.0); %Lymphocytes 5.4 % (21.0-51.0); %Monocytes 6.1 % (0.0-10.0); Hemoglobin 12.7 g/dL (14.0-18.0); Mean Corpuscular HGB CONC 35.3 g/dL (32.0-36.0); Mean Corpuscular Hemoglobin 29.7 pg (27.0-31.0); Mean Corpuscular Volume 84.3 fL (78.0-98.0); Mean Platelet Volume 5.9 fL (7.4-10.4); Platelet Count 368 thou/uL (130-400); RBC Distribution Width 12.8 % (11.5-14.5); Red Blood Cell (RBC) Count 4.26 mill/uL (4.70-6.10); White Blood Cell (WBC) Count 14.7 thou/uL (4.8-10.8)
[2018-09-03 17:51] LABS: ALT (SGPT) 30 U/L (8-55); AST (SGOT) 34 U/L (5-34); Albumin 3.6 g/dL (3.4-4.8); Alkaline Phosphatase 112 U/L (40-150); Anion Gap 16 mmol/L (10-20); BUN (Urea Nitrogen) 35 mg/dL (8.4-25.7); Bilirubin, Total 0.8 mg/dL (0.2-1.2); Calc. Creatinine Clearance 0 mL/min (70-130); Calcium 9.8 mg/dL (7.8-10.44); Carbon Dioxide 24 mmol/L (23-31); Chloride 100 mmol/L (98-107); Estimated GFR-MDRD 31; Globulin 3.8 g/dL (2.4-3.5); Glucose 239 mg/dL (83-110); Potassium 4.7 mmol/L (3.5-5.1); Protein, Total 7.4 g/dL (5.8-8.1); Sodium 135 mmol/L (136-145)
[2018-09-03 18:08] LABS: Clarity Clear (Clear); Leukocyte Negative (Negative); Nitrite Negative (Negative)
[2018-09-03 18:09] LABS: Bilirubin Negative (Negative); Blood, Urine Negative (Negative); Glucose, Urine (Dipstick) Negative (Negative); Protein, Urine (Dipstick) 100 mg/dL (Neg-Trace); Urobilinogen 0.2 mg/dL (0.2-1.0)
[2018-09-03 18:14] LABS: Bacteria/HPF 3+ HPF (None Seen); Hyaline Casts/LPF 0-3 HYALINE CAST LPF (0-3 Hyaline); RBC/HPF 0-3 HPF (0-3); Squamous Epithelial 0-3 HPF (0-3); WBC/HPF 0-3 HPF (0-3)
--- NOTE | 2018-09-03 18:48 | RAD ---
PORTABLE CHEST 09/03/18 An AP portable film at 1752 is compared with an 04/11/18 study. The heart is normal in size. There has been a prior CABG. There is no vascular congestion, edema, or pleural effusion. The lungs are clear. IMPRESSION: No acute findings. POS: HOME
[2018-09-03] MEDS ORDERED: HYDROcodone/Acetaminophen 5/325 mg Tablet PO PRN ×2 (19:40)
[2018-09-03] MEDS ORDERED: Acetaminophen 325 MG TAB PO PRN ×2 (19:40→21:13)
[2018-09-03] MEDS ORDERED: Ondansetron ODT 4 MG TAB SL PRN ×2 (19:40→21:13)
[2018-09-03] MEDS ORDERED: Ondansetron PF 4 MG/2 ML Vial IVP PRN (19:40)
[2018-09-03] MEDS: Dextrose 5 %-0.45 % NaCl 1,000 ML IV SCH (20:21)
[2018-09-03 20:48] VITALS: BMI 22.4
[2018-09-03] MEDS ORDERED: traMADol HCl 50 MG TAB PO PRN (21:13)
[2018-09-03] MEDS ORDERED: Senokot S 8.6-50 MG TAB PO PRN (21:13)
[2018-09-03] MEDS ORDERED: Alirocumab [Praluent Pen] 75 MG SC SCH (21:45)
[2018-09-04] MEDS: Dextrose 5 %-0.45 % NaCl 1,000 ML IV SCH ×4 (02:46→22:28)
[2018-09-04 05:27] LABS: #Lymphocytes 1.3 thou/uL (1.20-3.40); #Neutrophils 12.6 thou/uL (1.40-6.50); %Basophils 0.2 % (0.0-1.0); %Lymphocytes 8.6 % (21.0-51.0); %Neutrophils 84.2 % (42.0-75.0); Hemoglobin 11.7 g/dL (14.0-18.0); Mean Corpuscular HGB CONC 34.3 g/dL (32.0-36.0); Mean Corpuscular Hemoglobin 28.7 pg (27.0-31.0); Mean Corpuscular Volume 83.7 fL (78.0-98.0); Mean Platelet Volume 5.9 fL (7.4-10.4); Platelet Count 328 thou/uL (130-400); RBC Distribution Width 12.7 % (11.5-14.5); Red Blood Cell (RBC) Count 4.06 mill/uL (4.70-6.10)
[2018-09-04 05:39] LABS: ALT (SGPT) 26 U/L (8-55); AST (SGOT) 24 U/L (5-34); Albumin 3.2 g/dL (3.4-4.8); Alkaline Phosphatase 97 U/L (40-150); Anion Gap 15 mmol/L (10-20); BUN (Urea Nitrogen) 32 mg/dL (8.4-25.7); Bilirubin, Total 0.7 mg/dL (0.2-1.2); Calc. Creatinine Clearance 35 mL/min (70-130); Calcium 9.5 mg/dL (7.8-10.44); Carbon Dioxide 23 mmol/L (23-31); Chloride 102 mmol/L (98-107); Estimated GFR-MDRD 36; Globulin 3.3 g/dL (2.4-3.5); Glucose 277 mg/dL (83-110); Potassium 4.7 mmol/L (3.5-5.1); Protein, Total 6.5 g/dL (5.8-8.1); Sodium 135 mmol/L (136-145)
[2018-09-04] MEDS: Gabapentin 300 MG CAP PO SCH ×2 (08:51→20:06)
[2018-09-04] MEDS: Furosemide 20 MG TAB PO SCH (08:52)
[2018-09-04] MEDS: Carvedilol 3.125 MG TAB PO SCH ×2 (08:52→20:07)
[2018-09-04] MEDS: Aspirin 81 mg Enteric Coated Tablet PO SCH (08:52)
[2018-09-04] MEDS: Ezetimibe 10 MG TAB PO SCH (08:52)
[2018-09-04] MEDS: Baclofen 10 MG TAB PO SCH (08:52)
[2018-09-04] MEDS: Fish Oil 1,000 MG CAP PO SCH (08:53)
[2018-09-04] MEDS: Amlodipine 10 MG TAB PO SCH (08:53)
[2018-09-04] MEDS: Vit A,C & E/Lutein/Minerals Tablet PO SCH ×2 (08:53→20:07)
[2018-09-04] MEDS: Colchicine 0.6 MG TAB PO SCH ×2 (08:53→20:07)
[2018-09-04] MEDS ORDERED: BIOTIN PO SCH (09:00)
[2018-09-04] MEDS: Famotidine 20 MG TAB PO SCH ×2 (10:35→20:07)
[2018-09-04] MEDS: FEBUXOSTAT 40 MG PO SCH (10:37)
--- NOTE | 2018-09-04 11:07 | HP ---
CHIEF COMPLAINT: Generalized weakness and dehydration. HISTORY OF PRESENT ILLNESS: A 78-year-old male presented to [facility] Emergency Department yesterday evening secondary to complaints of worsening generalized weakness, as he was notably unable to get out of his vehicle after having been seen at his primary care physician's office, Dr. Brown. The patient reports having received a steroid shot while at his visit secondary to some discomfort related to his history of gout. Otherwise, no medication changes were made. This visit had been set up in regard to a posthospital admission evaluation, where he was admitted for diffuse gouty pain and accompanied generalized weakness with poor po intake. Initially, during this admission, it was suspected that he could have a septic joint due to his leukocytosis and joint pains; however, it is noted that the patient routinely develops leukocytosis when he has gout flares. He transitioned from inpatient status at [facility] with improvement of these issues to Swing Bed status at [facility], where he further worked with Physical Therapy and Occupational Therapy improving to the point where he was able to discharge to his home setting with plans for continuation of physical therapy and occupational therapy in the outpatient setting at [facility]. Unfortunately, the patient's condition has further declined since discharge to the point that he was unable to arise from a seated position from his vehicle and thus 911 was called and he was transferred to the emergency department here. Workup in the emergency department did reveal the patient to have a mild leukocytosis with a white blood cell count of 14.7 and acute renal insufficiency suspected to be secondary to his dehydrated state. The patient's spouse is elderly and frail and is unable to care for him at home, and due to this and the patient's inability to mobilize and/or perform activities of daily living, he has been admitted under observation status with a plan to transition care to the skilled nursing setting. Upon evaluation this morning, he does not complain of pain. He did have an episode of delirium overnight and removed his peripheral IV. This has been replaced, and at this time, he is completely alert and oriented and receiving IVF's. He is amenable for Commercial Technician to facilitate him to be set up in the skilled nursing setting. He has no other new concerns at this time. PAST MEDICAL HISTORY: Includes hypertension, coronary artery disease, stroke, dyslipidemia, diet-controlled diabetes mellitus, gout, chronic kidney disease stage 3, macular degeneration, benign prostatic hypertrophy. PAST SURGICAL HISTORY: Includes skin cancer excision and coronary artery bypass. ALLERGIES: STATINS. FAMILY HISTORY: Chronic kidney disease and macular degeneration. SOCIAL HISTORY: Denies smoking, alcohol, or illicit drug use. REVIEW OF SYSTEMS: GENERAL: Complains of weakness and fatigue. Denies fever. EARS, NOSE, AND THROAT: Denies sore throat, nasal congestion, or drainage. CARDIOVASCULAR: Denies chest pain or palpitations. RESPIRATORY: Denies shortness of breath or cough. GASTROINTESTINAL: Denies abdominal pain, nausea, vomiting, diarrhea, or constipation. GENITOURINARY: Denies dysuria or hematuria. MUSCULOSKELETAL: Complains of recent joint pains related to his history of gout. DERM: Denies rash. NEURO: Denies headache. LABORATORY DATA: White blood cell count 14.7, H and H of 12.7 and 35.9, platelets 368. Sodium 135, potassium 4.7, BUN 35, creatinine 2.08, GFR 31, glucose 239, AST 34, ALT 30. Cardiac enzymes are within normal limits. Urinalysis is positive for protein and 3+ bacteria, but negative for leukocyte esterase or nitrites. IMAGING DATA: Chest x-ray on 09/03/2018 shows no acute findings. PHYSICAL EXAMINATION: VITAL SIGNS: Temperature is 97.5, pulse is 72, blood pressure 159/77, respiratory rate 18, oxygen saturation is 95% on room air. GENERAL: The patient is alert and oriented, in no acute distress. He has generalized weakness. HEAD, EYES, EARS, NOSE, AND THROAT: Normocephalic, atraumatic. Moist mucous membranes. Extraocular muscles are intact bilaterally. NECK: Supple with no lymphadenopathy. CARDIOVASCULAR: Regular rate and rhythm. Normal S1, S2. No murmurs, rubs, or gallops. RESPIRATORY: Clear to auscultation bilaterally without wheezes, rales, or rhonchi. ABDOMEN: Soft, nontender to palpation. No rebound or guarding. EXTREMITIES: No clubbing, cyanosis, or edema. MUSCULOSKELETAL: No obvious gouty joint flares involving his joints. NEURO: Cranial nerves 2 through 12 are grossly intact. Nonfocal exam. ASSESSMENT AND PLAN: 1. Generalized weakness, progressive issue, for which the patient will have a social service consult with plan to transition to the skilled nursing setting. He is unable to satisfactorily care for himself at home and his is unable to adequately facilitate this individually. 2. Dehydration. The patient has been started on D5 half-normal saline at 150 mL an hour, which he has received overnight. We will cut this down to 75 mL an hour for now and monitor p.o. intake. 3. [id number] renal insufficiency. The patient remains in stage 3 chronic kidney disease with noted worsening of baseline creatinine. This is likely secondary to his poor p.o. intake, thus we will resume his IV fluids for now and repeat his metabolic panel. 4. Leukocytosis. This may be secondary to receiving a steroid shot yesterday. As he has no infectious etiology, we will repeat the patient's CBC and follow up his cultures. 5. Gout. The patient will resume his usual medication, which is colchicine. 6. Hypertension. We will resume the patient's home blood pressure medications. 7. Dyslipidemia. He is intolerant to statins. We will resume his usual Zetia. 8. Diet-controlled diabetes mellitus. Glucose is notably elevated, which again may be influenced by his steroid shot. We will monitor this. 9. Prophylaxis. We will provide famotidine for GI prophylaxis and SCDs for DVT prophylaxis. We will hold Lovenox secondary to decreased renal function. 10. Disposition: We will plan setup to transition to skilled nursing setting as soon as possible. DISCHARGE SUMMARY: Pt was kept in observation status. He received IVF's to correct his dehydration and hyponatremia; he is now euvolemic with po intake at baseline. WBC trended down appropriately during his stay. Commercial Technician has arranged for him to transfer care to [facility] for further skilled care. He will need to be on a gout diet to help limit gout flares that limit his ability to mobilize. Pt and family are agreeable to this plan and he will d/c today. Job ID: [id number] MTDD
[2018-09-04] MEDS: Zolpidem Tartrate 5 MG TAB PO SCH (20:06)
[2018-09-04] MEDS: Tamsulosin HCl 0.4 MG CAP PO SCH (20:07)
[2018-09-05 05:25] LABS: #Lymphocytes 1.8 thou/uL (1.20-3.40); #Monocytes 0.9 thou/uL (0.11-0.59); #Neutrophils 9.8 thou/uL (1.40-6.50); %Basophils 0.2 % (0.0-1.0); %Eosinophils 0.2 % (0.0-10.0); %Lymphocytes 14.5 % (21.0-51.0); %Monocytes 6.9 % (0.0-10.0); %Neutrophils 78.1 % (42.0-75.0); Hemoglobin 12.2 g/dL (14.0-18.0); Mean Corpuscular HGB CONC 34.3 g/dL (32.0-36.0); Mean Corpuscular Hemoglobin 28.5 pg (27.0-31.0); Mean Corpuscular Volume 83.3 fL (78.0-98.0); Mean Platelet Volume 6.1 fL (7.4-10.4); Platelet Count 356 thou/uL (130-400); RBC Distribution Width 12.7 % (11.5-14.5); Red Blood Cell (RBC) Count 4.27 mill/uL (4.70-6.10); White Blood Cell (WBC) Count 12.5 thou/uL (4.8-10.8)
[2018-09-05 05:38] LABS: ALT (SGPT) 58 U/L (8-55); AST (SGOT) 59 U/L (5-34); Albumin 3.3 g/dL (3.4-4.8); Alkaline Phosphatase 97 U/L (40-150); Anion Gap 13 mmol/L (10-20); BUN (Urea Nitrogen) 28 mg/dL (8.4-25.7); Bilirubin, Total 0.6 mg/dL (0.2-1.2); Calc. Creatinine Clearance 42 mL/min (70-130); Calcium 9.7 mg/dL (7.8-10.44); Carbon Dioxide 25 mmol/L (23-31); Chloride 105 mmol/L (98-107); Estimated GFR-MDRD 45; Globulin 3.4 g/dL (2.4-3.5); Glucose 176 mg/dL (83-110); Potassium 4.4 mmol/L (3.5-5.1); Protein, Total 6.7 g/dL (5.8-8.1); Sodium 139 mmol/L (136-145)
[2018-09-05] MEDS: Gabapentin 300 MG CAP PO SCH ×2 (09:26→20:51)
[2018-09-05] MEDS: Aspirin 81 mg Enteric Coated Tablet PO SCH (09:26)
[2018-09-05] MEDS: Famotidine 20 MG TAB PO SCH ×2 (09:27→20:52)
[2018-09-05] MEDS: Ezetimibe 10 MG TAB PO SCH (09:27)
[2018-09-05] MEDS: Vit A,C & E/Lutein/Minerals Tablet PO SCH ×2 (09:27→20:51)
[2018-09-05] MEDS: Colchicine 0.6 MG TAB PO SCH ×2 (09:27→20:52)
[2018-09-05] MEDS: Amlodipine 10 MG TAB PO SCH (09:27)
[2018-09-05] MEDS: Fish Oil 1,000 MG CAP PO SCH (09:27)
[2018-09-05] MEDS: Baclofen 10 MG TAB PO SCH (09:28)
[2018-09-05] MEDS: Carvedilol 3.125 MG TAB PO SCH ×2 (09:28→20:52)
[2018-09-05] MEDS: FEBUXOSTAT 40 MG PO SCH (09:28)
[2018-09-05] MEDS: Furosemide 20 MG TAB PO SCH (09:28)
[2018-09-05] MEDS: Tamsulosin HCl 0.4 MG CAP PO SCH (20:51)
[2018-09-05] MEDS: Zolpidem Tartrate 5 MG TAB PO SCH (20:52)
[2018-09-06] MEDS: Ezetimibe 10 MG TAB PO SCH (09:15)
[2018-09-06] MEDS: Furosemide 20 MG TAB PO SCH (09:16)
[2018-09-06] MEDS: Amlodipine 10 MG TAB PO SCH (09:16)
[2018-09-06] MEDS: Gabapentin 300 MG CAP PO SCH (09:17)
[2018-09-06] MEDS: Carvedilol 3.125 MG TAB PO SCH (09:18)
[2018-09-06] MEDS: Famotidine 20 MG TAB PO SCH (09:18)
[2018-09-06] MEDS: Baclofen 10 MG TAB PO SCH (09:18)
[2018-09-06] MEDS: Colchicine 0.6 MG TAB PO SCH (09:18)
[2018-09-06] MEDS: Vit A,C & E/Lutein/Minerals Tablet PO SCH (09:18)
[2018-09-06] MEDS: Fish Oil 1,000 MG CAP PO SCH (09:18)
[2018-09-06] MEDS: Aspirin 81 mg Enteric Coated Tablet PO SCH (09:18)
[2018-09-06] MEDS: FEBUXOSTAT 40 MG PO SCH (10:02)
[2018-09-06 13:17] VITALS: BP 136/76; TEMP 98.2
== END 2018-09-06 13:50 ==
LOC: BURERS 16:15 → BURMED 18:38
PROVIDERS: ADMIT Family Medicine; ATTEND Family Medicine
DX: R53.1 Weakness (principal); E86.0 Dehydration; I12.9 Hypertensive chronic kidney disease with stage 1 through stage 4 chronic kidney disease, or unspecified chronic kidney disease; E11.22 Type 2 diabetes mellitus with diabetic chronic kidney disease; N18.3 Chronic kidney disease, stage 3 (moderate); N17.9 Acute kidney failure, unspecified; M10.9 Gout, unspecified; I25.10 Atherosclerotic heart disease of native coronary artery without angina pectoris; E78.5 Hyperlipidemia, unspecified; N40.0 Benign prostatic hyperplasia without lower urinary tract symptoms; D72.829 Elevated white blood cell count, unspecified; E87.1 Hypo-osmolality and hyponatremia; Z86.73 Personal history of transient ischemic attack (TIA), and cerebral infarction without residual deficits; Z79.82 Long term (current) use of aspirin; Z79.899 Other long term (current) drug therapy; Z88.8 Allergy status to other drugs, medicaments and biological substances
CPT/HCPCS: 36415; 71045; 80053; 81003; 81015; 84443; 84484; 85025; 87086; 96360; 96361; G0378

== ENCOUNTER 2019-06-14 20:52 | Emergency (ER) | payer MEDICARE ==
[2019-06-14 21:18] LABS: #Basophils 0.1 thou/uL (0.0-0.2); #Eosinphils 0.4 thou/uL (0.0-0.7); #Monocytes 0.9 thou/uL (0.11-0.59); #Neutrophils 5.1 thou/uL (1.40-6.50); %Basophils 0.8 % (0.0-1.0); %Eosinophils 4.8 % (0.0-10.0); %Lymphocytes 23.3 % (21.0-51.0); %Monocytes 10.6 % (0.0-10.0); %Neutrophils 60.5 % (42.0-75.0); Hemoglobin 12.4 g/dL (14.0-18.0); Mean Corpuscular HGB CONC 35.3 g/dL (32.0-36.0); Mean Corpuscular Hemoglobin 30.2 pg (27.0-31.0); Mean Corpuscular Volume 85.6 fL (78.0-98.0); Platelet Count 241 thou/uL (130-400); Red Blood Cell (RBC) Count 4.09 mill/uL (4.70-6.10); White Blood Cell (WBC) Count 8.5 thou/uL (4.8-10.8)
[2019-06-14 21:23] LABS: Prothrombin Time 12.8 SEC (12.0-14.7)
[2019-06-14 21:29] LABS: ALT (SGPT) 19 U/L (8-55); AST (SGOT) 19 U/L (5-34); Albumin 3.9 g/dL (3.4-4.8); Alkaline Phosphatase 66 U/L (40-110); Anion Gap 16 mmol/L (10-20); BUN (Urea Nitrogen) 28 mg/dL (8.4-25.7); Bilirubin, Total 0.4 mg/dL (0.2-1.2); Calcium 9.3 mg/dL (7.8-10.44); Carbon Dioxide 22 mmol/L (23-31); Chloride 90 mmol/L (98-107); Globulin 2.3 g/dL (2.4-3.5); Glucose 150 mg/dL (83-110); Potassium 4.2 mmol/L (3.5-5.1); Protein, Total 6.2 g/dL (5.8-8.1); Sodium 124 mmol/L (136-145)
[2019-06-14 21:37] LABS: Calc. Creatinine Clearance 0 mL/min (70-130); Estimated GFR-MDRD 35
--- NOTE | 2019-06-16 07:29 | CT ---
CT OF THE BRAIN WITHOUT CONTRAST: 06/14/[address] was performed emergently for mental status changes with unresponsiveness. Comparison is made with a prior CT dated 11/05/18. The ventricles show only mild dilation consistent with age and atrophy. There are various areas of en cephalomalacia from prior strokes, particularly the right occipital lobe and to a lesser extent the l eft. Old strokes are seen in each cerebellar hemisphere, particularly the left. Other areas of stroke or chronic ischemic change are seen around the frontal horns bilaterally. Overall, the appearance is little different than the October study. No bleeding was seen. There is no sign of mass or edema. IMPRESSION: Multiple old ischemic changes with multiple areas of encephalomalacia from prior strokes. No acute in tracranial findings. Findings discussed with Dr. Haley at 2108 on 06/14/19. POS: HOME
== END 2019-06-14 21:45 | disposition short-term general hospital (02) ==
LOC: BURERS 20:52
DX: I63.9 Cerebral infarction, unspecified (principal); I12.0 Hypertensive chronic kidney disease with stage 5 chronic kidney disease or end stage renal disease; N18.6 End stage renal disease; E87.1 Hypo-osmolality and hyponatremia; I25.10 Atherosclerotic heart disease of native coronary artery without angina pectoris; E78.5 Hyperlipidemia, unspecified; E78.00 Pure hypercholesterolemia, unspecified; M10.9 Gout, unspecified; I25.2 Old myocardial infarction; Z87.891 Personal history of nicotine dependence
CPT/HCPCS: 36416; 70450; 80053; 84484; 85025; 85610; 85730; 93005; 94760; 96374

== ENCOUNTER 2019-06-20 09:54 | Inpatient (IN) | payer MEDICARE ==
[2019-06-20] MEDS: Gabapentin 300 MG CAP PO SCH (20:46)
[2019-06-20] MEDS: Carvedilol 3.125 MG TAB PO SCH (20:46)
[2019-06-20] MEDS: Zolpidem Tartrate 5 MG TAB PO SCH (20:47)
[2019-06-20] MEDS: Colchicine 0.6 MG TAB PO SCH (20:47)
[2019-06-20] MEDS: Tamsulosin HCl 0.4 MG CAP PO SCH (20:47)
[2019-06-21] MEDS: Vit A,C & E/Lutein/Minerals Tablet PO SCH ×3 (03:02→20:31)
[2019-06-21] MEDS ORDERED: Amlodipine 5 MG TAB PO SCH (09:00)
[2019-06-21] MEDS: Fish Oil 1,000 MG CAP PO SCH (09:07)
[2019-06-21] MEDS: Carvedilol 3.125 MG TAB PO SCH ×2 (09:07→20:32)
[2019-06-21] MEDS: Isosorbide Mononitrate (ER) 30 MG TAB PO SCH (09:07)
[2019-06-21] MEDS: Aspirin 81 mg Enteric Coated Tablet PO SCH (09:07)
[2019-06-21] MEDS: Colchicine 0.6 MG TAB PO SCH ×2 (09:07→20:32)
[2019-06-21] MEDS: BIOTIN PO SCH (09:09)
[2019-06-21] MEDS: FEBUXOSTAT 40 MG PO SCH (09:09)
[2019-06-21] MEDS: Baclofen 10 MG TAB PO SCH (09:09)
[2019-06-21] MEDS: Gabapentin 300 MG CAP PO SCH ×2 (09:09→20:32)
[2019-06-21] MEDS: Acetaminophen 325 MG TAB PO PRN (18:12)
[2019-06-21] MEDS: Tamsulosin HCl 0.4 MG CAP PO SCH (20:31)
[2019-06-21] MEDS: Zolpidem Tartrate 5 MG TAB PO SCH (20:31)
[2019-06-22] MEDS: Fish Oil 1,000 MG CAP PO SCH (08:52)
[2019-06-22] MEDS: Amlodipine 10 MG TAB PO SCH (08:52)
[2019-06-22] MEDS: Isosorbide Mononitrate (ER) 30 MG TAB PO SCH (08:52)
[2019-06-22] MEDS: Colchicine 0.6 MG TAB PO SCH ×2 (08:52→20:39)
[2019-06-22] MEDS: Aspirin 81 mg Enteric Coated Tablet PO SCH (08:52)
[2019-06-22] MEDS: Gabapentin 300 MG CAP PO SCH ×2 (08:53→20:40)
[2019-06-22] MEDS: Vit A,C & E/Lutein/Minerals Tablet PO SCH ×2 (08:53→20:40)
[2019-06-22] MEDS: Carvedilol 3.125 MG TAB PO SCH ×2 (08:53→20:39)
[2019-06-22] MEDS: BIOTIN PO SCH (08:54)
[2019-06-22] MEDS: FEBUXOSTAT 40 MG PO SCH (08:54)
[2019-06-22] MEDS: Baclofen 10 MG TAB PO SCH (08:58)
[2019-06-22] MEDS: Tamsulosin HCl 0.4 MG CAP PO SCH (20:38)
[2019-06-22] MEDS: Zolpidem Tartrate 5 MG TAB PO SCH (20:39)
[2019-06-23] MEDS: Acetaminophen 325 MG TAB PO PRN ×2 (00:09→08:21)
--- NOTE | 2019-06-23 07:23 | HP ---
PRIMARY CARE PHYSICIAN: Dr. Brown. CHIEF COMPLAINT: Extended stay at [facility] bed for skilled rehabilitation for deconditioning with physical and occupational therapy. HISTORY OF PRESENT ILLNESS: Mr. Marie is an 79-year-old white male with hypertension, coronary artery disease, history of stroke x2, hyperlipidemia, and history of complicated gout. He was admitted to the [facility] on 06/15/2019 for altered mental status. His condition started day prior to admission, a sudden onset of not feeling well. According to his , he took a nap and after 45 minutes, woke up with slurred speech and appeared confused. He was brought to [facility] with new onset of right-sided weakness. Based on his NIH score, the patient received tPA. After tPA administration, the patient noted to have some improvement on the right arm and right leg, but still had profound neglect and persistent aphasia. During evaluation, his sodium was 124. He was then transferred to [facility], he underwent a brain CT angiogram. His imaging did not show any thrombus. He was evaluated by Neurosurgery and decided that he was not a candidate for interventional procedure. The patient was subsequently admitted for hyponatremia with altered mental status. According to records, the patient demonstrated skin bruising after administration of tPA. MRI of the brain without contrast showed no evidence of acute infarct, he had cortical atrophy, and moderately severe chronic ischemic changes with areas of old infarcts. He was encephalopathic for several days. He spiked a temperature of 102.1 and subsequently started on IV antibiotics and antiviral for possible meningitis. Infectious and Neurology were then consulted. He underwent lumbar puncture and EEG, which showed abnormal study for findings of mild diffuse slowing. Neurology impression was hyponatremia contributing to his altered mental status. Nephrology was consulted as well for acute kidney injury with hyponatremia. He had aggressive correction of his electrolytes. His mental status improved slowly but not back to baseline. He started physical therapy prior to his transfer and ambulated about 10 feet x2. The patient demonstrated antalgic gait, decreased balance, endurance, and strength. Hence, recommendation for inpatient rehab to address his deconditioning. The patient's family are hopeful for patient's recovery and to go back home. Upon my exam this morning, the patient is oriented x3, he is complaining of pain and tenderness on the right knee. PAST MEDICAL HISTORY: 1. Hypertension. 2. Coronary artery disease. 3. History of stroke x2. 4. Hyperlipidemia. 5. Diabetes, diet controlled. 6. Complicated gout. 7. Recent diagnosis of acute kidney injury. 8. Hypokalemia, resolved. 9. Macular degeneration. 10. Benign prostatic hypertrophy. PAST SURGICAL HISTORY: 1. Coronary artery bypass. 2. Skin cancer excision. ALLERGIES: STATINS. FAMILY HISTORY: Significant for chronic kidney disease and macular degeneration. SOCIAL HISTORY: The patient is . Former smoker, quit about 20 years ago. History of alcohol use, used to drink three hard liquors every day for the past 50 years. Son lives 2 hours away. MEDICATIONS: 1. Tylenol 650 mg every 6 hours p.r.n. for pain. 2. Amlodipine 10 mg daily. 3. Aspirin 81 mg daily. 4. Baclofen 10 mg daily. 5. Coreg 3.125 mg b.i.d. 6. Colchicine 0.3 mg b.i.d. 7. Fish oil 1000 mg daily. 8. Neurontin 300 mg b.i.d. 9. Imdur 60 mg daily. 10. Multivitamins one tablet b.i.d. 11. Biotin 1 tablet daily. 12. Uloric one tablet daily. 13. Praluent 75 mg subcu every 14 days. 14. Flomax 0.4 mg nightly. 15. Ambien 10 mg nightly. REVIEW OF SYSTEMS: GENERAL: Fever, resolved. Positive for fatigue. Negative for weight gain or loss. HEENT: Negative for headaches. Positive for blurred vision. Negative for sore throat. CARDIOVASCULAR: Negative for chest pain, shortness of breath, or cyanosis. RESPIRATORY: Negative for wheezing or cough. GI: Positive for constipation. Negative for nausea, vomiting, or diarrhea. NEUROLOGIC: Positive for confusion, improving. Positive for right hemiparesis, resolved. Positive for memory loss. MUSCULOSKELETAL: Positive for right knee pain with tenderness. PSYCHIATRIC: Negative for homicidal or suicidal ideations. PHYSICAL EXAMINATION: VITAL SIGNS: Blood pressure of 178/79, temperature 97.4, pulse of 58, respiratory rate of 18, and O2 saturation 95% on room air. GENERAL: The patient is alert, oriented x3, not in respiratory distress. HEENT: Normocephalic and atraumatic. Pupils are equal and reactive to light. NECK: Supple. Negative for lymphadenopathy. CHEST AND LUNGS: Symmetrical expansion. Clear to auscultation. HEART: Regular rate and rhythm. ABDOMEN: Flat, soft, nontender. Normoactive bowel sounds. Negative for CVA tenderness. EXTREMITIES: Good range of motion of upper extremities and left lower extremity, decreased range of motion of the right lower extremity. Positive for diffuse tenderness on the right knee. Negative for swelling. Negative for Homans sign. SKIN: Diffuse bruising on the left side of the neck and both upper extremities. NEUROLOGIC: The patient is awake, cooperative, follows commands. Speech is slow, but fluent. Gait not assessed due to pain. LABORATORY DATA AND IMAGING STUDIES: Reviewed. ASSESSMENT: 1. Physical deconditioning. 2. Encephalopathic, due to multifactorial causes, improving. 3. Hypertension. 4. Diabetes mellitus, diet controlled. 5. Coronary artery disease. 6. History of stroke x2. 7. Hyperlipidemia. 8. Gait instability. 9. Recent gout flare with fever. 10. Electrolyte abnormalities, corrected. PLAN: 1. Start PT and OT, goals to improve mobility, gait, endurance, strength, and transfer ability. 2. Reconcile present medication and adjust depending on clinical course. 3. Avoid benzodiazepines or any medication that can cause sedation. 4. Consult Case Management for discharge planning and advise regarding potential need for DME. 5. Anticipate discharge in 1 to 2 weeks, the patient may require home health. CODE STATUS: Full code. Job ID: [id number]
[2019-06-23] MEDS: Amlodipine 10 MG TAB PO SCH (08:21)
[2019-06-23] MEDS: Aspirin 81 mg Enteric Coated Tablet PO SCH (08:21)
[2019-06-23] MEDS: Vit A,C & E/Lutein/Minerals Tablet PO SCH ×2 (08:25→20:23)
[2019-06-23] MEDS: Colchicine 0.6 MG TAB PO SCH ×2 (08:25→20:23)
[2019-06-23] MEDS: Baclofen 10 MG TAB PO SCH (08:25)
[2019-06-23] MEDS: Fish Oil 1,000 MG CAP PO SCH (08:25)
[2019-06-23] MEDS: Gabapentin 300 MG CAP PO SCH ×2 (08:25→20:23)
[2019-06-23] MEDS: Isosorbide Mononitrate (ER) 30 MG TAB PO SCH (08:26)
[2019-06-23] MEDS: Carvedilol 3.125 MG TAB PO SCH ×2 (08:26→20:23)
[2019-06-23] MEDS: BIOTIN PO SCH (08:28)
[2019-06-23] MEDS: ALIROCUMAB 75 MG SQ SCH ×2 (08:31→14:41)
[2019-06-23] MEDS: FEBUXOSTAT 40 MG PO SCH (08:32)
[2019-06-23 14:47] VITALS: BMI 24.3
[2019-06-23] MEDS: Zolpidem Tartrate 5 MG TAB PO SCH (20:23)
[2019-06-23] MEDS: Tamsulosin HCl 0.4 MG CAP PO SCH (20:23)
[2019-06-24] MEDS: BIOTIN PO SCH (08:16)
[2019-06-24] MEDS: Vit A,C & E/Lutein/Minerals Tablet PO SCH ×2 (08:17→20:35)
[2019-06-24] MEDS: Colchicine 0.6 MG TAB PO SCH ×2 (08:17→20:35)
[2019-06-24] MEDS: Aspirin 81 mg Enteric Coated Tablet PO SCH (08:17)
[2019-06-24] MEDS: Gabapentin 300 MG CAP PO SCH ×2 (08:18→20:35)
[2019-06-24] MEDS: Fish Oil 1,000 MG CAP PO SCH (08:18)
[2019-06-24] MEDS: Isosorbide Mononitrate (ER) 30 MG TAB PO SCH (08:18)
[2019-06-24] MEDS: Carvedilol 3.125 MG TAB PO SCH ×2 (08:19→20:35)
[2019-06-24] MEDS: Baclofen 10 MG TAB PO SCH (08:19)
[2019-06-24] MEDS: Amlodipine 10 MG TAB PO SCH (08:19)
[2019-06-24] MEDS: FEBUXOSTAT 40 MG PO SCH (08:21)
[2019-06-24] MEDS ORDERED: FEBUXOSTAT 40 MG PO SCH (17:00)
[2019-06-24] MEDS: Acetaminophen 325 MG TAB PO PRN (17:17)
[2019-06-24] MEDS: Zolpidem Tartrate 5 MG TAB PO SCH (20:35)
[2019-06-24] MEDS: Tamsulosin HCl 0.4 MG CAP PO SCH (20:36)
[2019-06-25] MEDS: Acetaminophen 325 MG TAB PO PRN ×3 (08:27→20:48)
[2019-06-25] MEDS: Isosorbide Mononitrate (ER) 30 MG TAB PO SCH (08:27)
[2019-06-25] MEDS: Gabapentin 300 MG CAP PO SCH ×2 (08:28→20:49)
[2019-06-25] MEDS: Amlodipine 10 MG TAB PO SCH (08:28)
[2019-06-25] MEDS: Vit A,C & E/Lutein/Minerals Tablet PO SCH ×2 (08:28→20:48)
[2019-06-25] MEDS: Colchicine 0.6 MG TAB PO SCH ×2 (08:28→20:48)
[2019-06-25] MEDS: Carvedilol 3.125 MG TAB PO SCH ×2 (08:29→20:48)
[2019-06-25] MEDS: Fish Oil 1,000 MG CAP PO SCH (08:29)
[2019-06-25] MEDS: Baclofen 10 MG TAB PO SCH (08:29)
[2019-06-25] MEDS: BIOTIN 10,000 MCG PO SCH (08:29)
[2019-06-25] MEDS: Aspirin 81 mg Enteric Coated Tablet PO SCH (08:29)
[2019-06-25] MEDS: Tamsulosin HCl 0.4 MG CAP PO SCH (20:48)
[2019-06-25] MEDS: Zolpidem Tartrate 5 MG TAB PO SCH (20:48)
[2019-06-26] MEDS: Acetaminophen 325 MG TAB PO PRN (09:38)
[2019-06-26] MEDS: Aspirin 81 mg Enteric Coated Tablet PO SCH (09:39)
[2019-06-26] MEDS: Gabapentin 300 MG CAP PO SCH ×2 (09:39→20:11)
[2019-06-26] MEDS: Baclofen 10 MG TAB PO SCH (09:39)
[2019-06-26] MEDS: Colchicine 0.6 MG TAB PO SCH ×2 (09:39→20:11)
[2019-06-26] MEDS: Vit A,C & E/Lutein/Minerals Tablet PO SCH ×2 (09:39→20:11)
[2019-06-26] MEDS: Fish Oil 1,000 MG CAP PO SCH (09:39)
[2019-06-26] MEDS: Isosorbide Mononitrate (ER) 30 MG TAB PO SCH (09:39)
[2019-06-26] MEDS: Carvedilol 3.125 MG TAB PO SCH ×2 (09:40→20:11)
[2019-06-26] MEDS: Amlodipine 10 MG TAB PO SCH (09:40)
[2019-06-26] MEDS: BIOTIN 10,000 MCG PO SCH (09:41)
[2019-06-26] MEDS: Zolpidem Tartrate 5 MG TAB PO SCH (20:11)
[2019-06-26] MEDS: Tamsulosin HCl 0.4 MG CAP PO SCH (20:11)
[2019-06-27] MEDS: Vit A,C & E/Lutein/Minerals Tablet PO SCH ×2 (09:12→21:21)
[2019-06-27] MEDS: Gabapentin 300 MG CAP PO SCH ×2 (09:13→21:21)
[2019-06-27] MEDS: Aspirin 81 mg Enteric Coated Tablet PO SCH (09:13)
[2019-06-27] MEDS: Isosorbide Mononitrate (ER) 30 MG TAB PO SCH (09:13)
[2019-06-27] MEDS: Colchicine 0.6 MG TAB PO SCH ×2 (09:13→21:22)
[2019-06-27] MEDS: Fish Oil 1,000 MG CAP PO SCH (09:13)
[2019-06-27] MEDS: Carvedilol 3.125 MG TAB PO SCH ×2 (09:15→21:21)
[2019-06-27] MEDS: Baclofen 10 MG TAB PO SCH (09:15)
[2019-06-27] MEDS: Amlodipine 10 MG TAB PO SCH (09:15)
[2019-06-27] MEDS: BIOTIN 10,000 MCG PO SCH (09:17)
[2019-06-27] MEDS: Acetaminophen 325 MG TAB PO PRN (09:23)
--- NOTE | 2019-06-27 16:26 | PRG ---
DATE OF SERVICE: 06/27/2019 SUBJECTIVE: The patient is doing well overall. He is participating with physical therapy. He walked about 275 feet using a rolling walker with contact guard assist. He is still complaining of occasional cramping pain on both lower extremities, still manifesting fatigue with physical therapy. He required resting breaks every 20 feet, lasting about 5 seconds each break. His bruising is improving. Appetite is at baseline. The patient was evaluated for speech for dysphagia. He was able to consume regular texture food and thin liquids with no signs of aspiration. OBJECTIVE: VITAL SIGNS: Blood pressure of 166/81, pulse of 75, respiratory rate of 20, O2 saturation 93% on room air, temperature of 99.1. GENERAL: The patient is alert, oriented x3, not in respiratory distress. HEENT: Normocephalic, atraumatic. Pupils are equal, reactive to light. NECK: Supple. Negative for lymphadenopathy. CHEST AND LUNGS: Symmetrical expansion. Clear to auscultation. HEART: Regular rate and rhythm. Negative for murmur. ABDOMEN: Flat, soft, nontender. Normoactive bowel sounds. EXTREMITIES: Good range of motion of both upper and lower extremities, decreased range of motion of right lower extremity. Positive for mild tenderness on the right knee. Negative for swelling. SKIN: Diffuse bruising on the left side of the neck and both upper extremities, improved from previous exam. NEUROLOGIC: The patient is awake, cooperative. Follows commands. Speech is slow. LABORATORY DATA: Reviewed. ASSESSMENT: 1. Physical deconditioning. 2. Encephalopathic due to multifactorial causes, improving. 3. Hypertension, stable. Adjusted Norvasc to 10 mg daily. 4. Diabetes mellitus, diet controlled. Fasting blood glucose, stable. 5. Coronary artery disease. 6. History of stroke x2. 7. Hyperlipidemia. 8. Gait instability. 9. Recent gout flare presenting with altered mental status and fever. 10. Electrolyte abnormalities, resolved. PLAN: 1. Continue PT/OT. 2. Adjust diet to regular texture with thin liquids. 3. Possible discharge in about 7 to 14 days. Job ID: [id number]
[2019-06-27] MEDS: Zolpidem Tartrate 5 MG TAB PO SCH (21:21)
[2019-06-27] MEDS: Tamsulosin HCl 0.4 MG CAP PO SCH (21:21)
[2019-06-28 08:52] LABS: Prothrombin Time 13.2 SEC (12.0-14.7)
[2019-06-28 08:53] LABS: #Basophils 0.1 thou/uL (0.0-0.2); #Eosinphils 0.6 thou/uL (0.0-0.7); #Lymphocytes 1.6 thou/uL (1.20-3.40); #Neutrophils 5.8 thou/uL (1.40-6.50); %Basophils 0.9 % (0.0-1.0); %Eosinophils 7.1 % (0.0-10.0); %Lymphocytes 17.5 % (21.0-51.0); %Monocytes 11.2 % (0.0-10.0); %Neutrophils 63.2 % (42.0-75.0); Hemoglobin 10.4 g/dL (14.0-18.0); Mean Corpuscular HGB CONC 33.9 g/dL (32.0-36.0); Mean Corpuscular Hemoglobin 30.9 pg (27.0-31.0); Mean Corpuscular Volume 91.2 fL (78.0-98.0); Mean Platelet Volume 5.9 fL (7.4-10.4); Platelet Count 381 thou/uL (130-400); RBC Distribution Width 14.9 % (11.5-14.5); Red Blood Cell (RBC) Count 3.38 mill/uL (4.70-6.10); White Blood Cell (WBC) Count 9.1 thou/uL (4.8-10.8)
[2019-06-28 08:57] LABS: Lactic Acid 0.6 mmol/L (0.5-2.2)
[2019-06-28 09:01] LABS: ALT (SGPT) 63 U/L (8-55); AST (SGOT) 42 U/L (5-34); Albumin 2.8 g/dL (3.4-4.8); Alkaline Phosphatase 164 U/L (40-110); Anion Gap 14 mmol/L (10-20); BUN (Urea Nitrogen) 42 mg/dL (8.4-25.7); Bilirubin, Total 0.6 mg/dL (0.2-1.2); Calc. Creatinine Clearance 13 mL/min (70-130); Calcium 8.7 mg/dL (7.8-10.44); Carbon Dioxide 24 mmol/L (23-31); Chloride 106 mmol/L (98-107); Estimated GFR-MDRD 11; Glucose 91 mg/dL (83-110); Potassium 4.2 mmol/L (3.5-5.1); Protein, Total 5.8 g/dL (5.8-8.1); Sodium 140 mmol/L (136-145)
[2019-06-28 09:18] LABS: CKMB 5.6 ng/mL (0-6.6)
--- NOTE | 2019-06-28 10:04 | CT ---
CT OF THE BRAIN WITHOUT CONTRAST: DATE: 06/28/2019. COMPARISON: Comparison is made with a 06/16/2019 study done at [facility]. FINDINGS: There has been no substantial interval change. Multiple prior infarcts are noted, particularly in th e cerebellum and the occipital lobes. The largest area of encephalomalacia is in the right occipital lobe. There are also patchy densities throughout the deep white matter around the basal ganglia reg ions. There were no findings that were strongly suggestive of an acute infarct. There was no bleedi ng, edema, or mass. The ventricular sizes are normal. IMPRESSION: Multiple old infarcts and encephalomalacia as noted. No specific change since the 06/16/2019 scan. Findings discussed with Dr. Haley at 0930 on 06/28/2019. CODE CR POS: HOME
[2019-06-28] MEDS ORDERED: Sodium Chloride 0.9% 1,000 ML IV SCH (11:00)
[2019-06-28] MEDS: Baclofen 10 MG TAB PO SCH (11:13)
[2019-06-28] MEDS: Carvedilol 3.125 MG TAB PO SCH ×2 (11:13→21:24)
[2019-06-28] MEDS: Vit A,C & E/Lutein/Minerals Tablet PO SCH ×2 (11:13→21:24)
[2019-06-28] MEDS: Gabapentin 300 MG CAP PO SCH ×2 (11:13→21:24)
[2019-06-28] MEDS: Amlodipine 10 MG TAB PO SCH (11:13)
[2019-06-28] MEDS: Isosorbide Mononitrate (ER) 30 MG TAB PO SCH (11:15)
[2019-06-28] MEDS: Fish Oil 1,000 MG CAP PO SCH (11:16)
[2019-06-28] MEDS: Aspirin 81 mg Enteric Coated Tablet PO SCH (11:16)
[2019-06-28] MEDS: BIOTIN 10,000 MCG PO SCH (11:18)
[2019-06-28] MEDS: Colchicine 0.6 MG TAB PO SCH (11:23)
[2019-06-28] MEDS ORDERED: hydrALAZINE 20 MG/ML VIAL ONE ×2 (11:51→17:03)
[2019-06-28] MEDS: hydrALAZINE 20 MG/ML VIAL SLOW IVP PRN (11:54)
[2019-06-28 15:14] LABS: Anion Gap 15 mmol/L (10-20); BUN (Urea Nitrogen) 43 mg/dL (8.4-25.7); Calc. Creatinine Clearance 13 mL/min (70-130); Calcium 8.2 mg/dL (7.8-10.44); Carbon Dioxide 20 mmol/L (23-31); Chloride 107 mmol/L (98-107); Estimated GFR-MDRD 12; Glucose 115 mg/dL (83-110); Potassium 4.3 mmol/L (3.5-5.1); Sodium 138 mmol/L (136-145)
[2019-06-28 15:17] LABS: Troponin I 0.053 ng/mL (< 0.028)
[2019-06-28] MEDS: Tamsulosin HCl 0.4 MG CAP PO SCH (21:24)
[2019-06-28] MEDS: Sodium Chloride 0.9% 1,000 ML IV SCH (21:26)
[2019-06-29] MEDS: hydrALAZINE 20 MG/ML VIAL SLOW IVP PRN (04:32)
[2019-06-29 04:43] LABS: Anion Gap 17 mmol/L (10-20); BUN (Urea Nitrogen) 43 mg/dL (8.4-25.7); Calc. Creatinine Clearance 13 mL/min (70-130); Calcium 8.3 mg/dL (7.8-10.44); Carbon Dioxide 18 mmol/L (23-31); Chloride 110 mmol/L (98-107); Estimated GFR-MDRD 11; Glucose 116 mg/dL (83-110); Potassium 4.6 mmol/L (3.5-5.1); Sodium 140 mmol/L (136-145)
[2019-06-29 04:50] LABS: #Basophils 0.2 thou/uL (0.0-0.2); #Eosinphils 0.7 thou/uL (0.0-0.7); #Lymphocytes 1.9 thou/uL (1.20-3.40); #Monocytes 1.2 thou/uL (0.11-0.59); #Neutrophils 6.4 thou/uL (1.40-6.50); %Basophils 1.6 % (0.0-1.0); %Eosinophils 6.7 % (0.0-10.0); %Lymphocytes 18.4 % (21.0-51.0); %Monocytes 11.8 % (0.0-10.0); %Neutrophils 61.4 % (42.0-75.0); Hemoglobin 9.8 g/dL (14.0-18.0); Mean Corpuscular HGB CONC 31.9 g/dL (32.0-36.0); Mean Corpuscular Hemoglobin 30.1 pg (27.0-31.0); Mean Corpuscular Volume 94.5 fL (78.0-98.0); Mean Platelet Volume 5.6 fL (7.4-10.4); Platelet Count 490 thou/uL (130-400); RBC Distribution Width 15.7 % (11.5-14.5); Red Blood Cell (RBC) Count 3.26 mill/uL (4.70-6.10); White Blood Cell (WBC) Count 10.4 thou/uL (4.8-10.8)
[2019-06-29] MEDS: Sodium Chloride 0.9% 1,000 ML IV SCH (08:32)
[2019-06-29] MEDS: Isosorbide Mononitrate (ER) 30 MG TAB PO SCH (08:33)
[2019-06-29] MEDS: Amlodipine 10 MG TAB PO SCH (08:33)
[2019-06-29] MEDS: Fish Oil 1,000 MG CAP PO SCH (08:33)
[2019-06-29] MEDS: Vit A,C & E/Lutein/Minerals Tablet PO SCH (08:33)
[2019-06-29] MEDS: Carvedilol 3.125 MG TAB PO SCH (08:33)
[2019-06-29] MEDS: Gabapentin 300 MG CAP PO SCH (08:33)
[2019-06-29] MEDS: Baclofen 10 MG TAB PO SCH (08:34)
[2019-06-29] MEDS: Aspirin 81 mg Enteric Coated Tablet PO SCH (08:34)
[2019-06-29 08:35] VITALS: BP 146/70
[2019-06-29] MEDS: BIOTIN 10,000 MCG PO SCH (08:35)
[2019-06-29 08:36] VITALS: TEMP 97.9
--- NOTE | 2019-07-01 02:57 | PQF ---
[employer] Winform ViewerORSAK SANDRA NEVILLE ADRIANA YOST MD [id number] CLINICAL DOCUMENTATION CLARIFICATION FORM: POST DISCHARGE Addendum to original discharge summary date: ____ Late entry note date: __ DATE: 07/01/2019 ATTN: ADRIANA YOST MD Please exercise your independent, professional judgment in responding to the clarification form. Clinical indicators are provided on the bottom of this form for your review Please check appropriate box(s): [ ] Encephalopathy: Etiology:[ ] Hypertensive [ ] Metabolic [ ] Toxic [ ] Unspecified [ ] Other diagnosis [ ] Unable to determine In addition, please specify: Present on Admission (POA): [ ] Yes [ ] No [ ] Unable to determine For continuity of documentation, please document condition throughout progress notes and discharge summary. Thank You. CLINICAL INDICATORS - SIGNS / SYMPTOMS / LABS Encephalopathy due tomultifactorial causes, improving - Documented in H&P on by ADRIANA YOST MD Electrolyte abnormality - Documented in H&P on 06/20 by ADRIANA YOST MD Physicial Deconditioning - Documented in H&P on 06/20 by ADRIANA YOST MD Presenting with AMS and fever - Documented in PNs on 06/27 by ADRIANA YOST MD RISK FACTORS HTN - Documented in H&P on 06/20 by ADRIANA YOST MD DM - Documented in H&P on 06/20 by ADRIANA YOST MD Hx of stroke - Documented in H&P on 06/20 by ADRIANA YOST MD TREATMENTS: Reconcile present medication and adjust depending on clinical course - Documented in H&P on 06/20 by ADRIANA YOST MD Adjust Norvasc 10 mg daily - Documented in PNs on 06/27 by ADRIANA YOST MD CT brain [employer] (This form is maintained as a part of the permanent medical record) 2014 [employer]. All Rights Reserved [email or web address] [not provided] [email or web address]
[2019-07-01] MEDS ORDERED: FEBUXOSTAT 40 MG PO SCH (09:00)
== END 2019-06-29 10:19 | disposition short-term general hospital (02) | DRG 948 ==
LOC: BURMED 19:10
PROVIDERS: ADMIT Family Medicine; ATTEND Family Medicine
DX: R53.81 Other malaise (principal); G93.40 Encephalopathy, unspecified; I25.10 Atherosclerotic heart disease of native coronary artery without angina pectoris; I10 Essential (primary) hypertension; E78.5 Hyperlipidemia, unspecified; M10.9 Gout, unspecified; E11.9 Type 2 diabetes mellitus without complications; N40.0 Benign prostatic hyperplasia without lower urinary tract symptoms; Z86.73 Personal history of transient ischemic attack (TIA), and cerebral infarction without residual deficits; Z95.1 Presence of aortocoronary bypass graft; Z85.828 Personal history of other malignant neoplasm of skin; Z87.891 Personal history of nicotine dependence; Z79.82 Long term (current) use of aspirin; Z79.899 Other long term (current) drug therapy
CPT/HCPCS: 36415; 36416; 70450; 80048; 80053; 82553; 83605; 84484; 85025; 85610; 87040; J0360

== ENCOUNTER → 2019-06-28 | Emergency (ER) | payer MEDICARE ==
[~2019-06-28] MED LIST: Sodium Chloride 0.9% 1,000 ML IV SCH; hydrALAZINE 20 MG/ML VIAL ONE
[2019-06-28 10:30] LABS: Bilirubin Negative (Negative); Blood, Urine Trace (Negative); Clarity Clear (Clear); Glucose, Urine (Dipstick) Negative (Negative); Leukocyte Negative (Negative); Nitrite Negative (Negative); Protein, Urine (Dipstick) 30 mg/dL (Neg-Trace); Urobilinogen 0.2 mg/dL (Less than 2)
[2019-06-28 10:34] LABS: Bacteria/HPF None Seen HPF (None Seen); Broad Cast None Seen LPF (None Seen); Calcium Oxalate Crystals None Seen HPF (None Seen); Cellular Cast None Seen LPF (None Seen); Epithelial Cast None Seen LPF (None Seen); Fatty Cast None Seen LPF (None Seen); Mucous/LPF None Seen LPF (<2+); Other Casts None Seen LPF (None Seen); Oval Fat Bodies/HPF None Seen HPF (None Seen); RBC/HPF 0-3 HPF (0-3); Red Blood Cell Cast None Seen LPF (None Seen); Renal Epithelial None Seen HPF (None Seen); Sperm/HPF None Seen HPF (None Seen); Squamous Epithelial None Seen HPF (0-3); Transitional Epithelial None Seen HPF (None Seen); Trichomonas/HPF None Seen HPF (None Seen); Triple Phosphate Crystal None Seen HPF (None Seen); Unclassified Crystals None Seen HPF (None Seen); WBC/HPF None Seen HPF (0-3); Waxy Cast None Seen LPF (None Seen); White Blood Cell Cast None Seen LPF (None Seen); Yeast-Budding None Seen HPF (None Seen); Yeast-Hyphae None Seen HPF (None Seen)
== END ==
LOC: BURERS 08:59
DX: R41.82 Altered mental status, unspecified (principal); I25.10 Atherosclerotic heart disease of native coronary artery without angina pectoris; E78.5 Hyperlipidemia, unspecified; E78.00 Pure hypercholesterolemia, unspecified; M10.9 Gout, unspecified; I25.2 Old myocardial infarction; I12.0 Hypertensive chronic kidney disease with stage 5 chronic kidney disease or end stage renal disease; N18.6 End stage renal disease; Z86.73 Personal history of transient ischemic attack (TIA), and cerebral infarction without residual deficits; Z87.891 Personal history of nicotine dependence; Z79.899 Other long term (current) drug therapy
CPT/HCPCS: 81003; 81015; 96360; J0360